=== PATIENT | female | born 1960 | race Caucasian/White ===

== ENCOUNTER 2017-06-10 10:48 | Day surgery (SDC) | payer OTHER, SELFPAY ==
[2017-06-10 11:11] VITALS: BP 160/95; PULSE 73; RESP 18; TEMP 36.6; O2SAT 96
[2017-06-10 11:34] VITALS: BP 154/89; PULSE 75; RESP 18; TEMP 36.6; O2SAT 99
[2017-06-10 11:51] VITALS: BP 163/83; PULSE 72; RESP 97
[2017-06-10 11:56] VITALS: BP 155/83; PULSE 74; RESP 20; O2SAT 97
--- NOTE | 2017-06-10 12:00 | HMH.PMPROC ---
- Procedure Date: 06/10/17 Time: 12:00 Anesthesiologist:: Alfredo Carlin CRNA Complications:: None Pre-procedure Diagnosis:: Disc disease lumbar spine Post-procedure Diagnosis:: Same Indications for Procedure:: A pleasant 57-year-old white female that we have been managing with an intrathecal pain pump for chronic low back pain secondary to degenerative disc disease lumbar spine multiple levels start procedure clinic today for intrathecal pain pump refill. She currently has morphine sulfate 15 mg/mL. Her current rate is 2.4 mg per day. Objective: Patient is awake alert oriented ?3. No acute distress. Flexion extension lumbar spine somewhat guarded secondary to pain. Deep tendon reflexes upper and lower extremities normal. Motor strength upper and lower extremities normal. There is no gross sensory deficit. Gait is normal. Procedure Details:: Details of the procedure were explained to the patient. The patient was taken to the procedure room placed in the supine position on the fluoroscopy table. The area over the pump was cleansed using chlorhexidine as a cleansing solution. Using 22-gauge needle on the refill kit the pump was accessed with ease. 5ml's of solution was withdrawn and discarded appropriately. The pump was then filled with 20 cc of morphine sulfate 15 mg/mL. The pump was interrogated. The rate was continued at 2.4 mg per day. Plan and Disposition:: Patient was reevaluated 10 minutes post procedure. She is doing very well.
== END 2017-06-10 12:11 | disposition home or self-care (01) ==
LOC: SC.PAINP 10:51
PROVIDERS: Visit Provider Nurse Anesthetist, Certified Registered
DX: M51.36 Other intervertebral disc degeneration, lumbar region (principal)
CPT/HCPCS: 95991

== ENCOUNTER → 2017-11-24 11:05 | Outpatient (POV) | payer OTHER, SELFPAY ==
[2017-11-24 11:24] VITALS: BP 148/79; PULSE 81; RESP 18; TEMP 36.3; O2SAT 96; BMI 25.8
--- NOTE | 2017-11-24 12:09 | HMH.PAINSOAP ---
[facility] Pain Management SOAP Note Subjective:: She is a pleasant 57-year-old white female who presents today for follow-up. Patient had her intrathecal pain pump generator changed last week. Since then she has had an open rash over her stomach and her legs. Patient is allergic to adhesive and does follow the pattern of iso-band. Patient has taken some Benadryl however not regularly. Patient is finishing up her bedroom. Patient's incision site looks clean and dry. There is no sign symptoms of infection and patient denies fever. Patient states her pain control with her new pump at [place]. She states that she is having full coverage of all of her pain including her shoulder pain. ROS General: no recent weight change, no fever, no sleep disturbances Respiratory: no cough, no shortness of air, no recurring pulmonary infections Cardiovascular/Peripheral Vascular: No chest pain, No palpitations, no edema, no shortness of breath. Gastrointestinal: no incontinence, normal bowel movements reported Genitourinary: no incontinence Musculoskeletal: Back pain Skin: Scattered rash Psychiatric: normal mood/ affect Neurological: [denies weakness in extremities], [denies balance issues] Objective:: Physical Exam General: Alert and oriented x3, no acute distress, pleasant and cooperative, [on room air] Lungs: Resps E/U, Symmetrical chest expansion, Eyes: PERRL Musculoskeletal: Flexion and extension of lumbar spine somewhat guarded secondary to pain, deep tendon reflexes normal, strength in upper and lower extremities [5/5], slightly antalgic gait noted Skin: Pump insertion site clean dry intact. Patient still has stitches. No redness noted around the site. No drainage noted. Patient does have scattered rash on her abdomen. 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 Patient has been instructed to call our office if she begins to have any fever or drainage from her site. Patient is to continue on Benadryl until resolution of rash. I also encouraged her to get some Benadryl cream and utilize that topically. Patient is to finish her antibiotic therapy. This note was dictated using voice recognition software and may contain errors or omissions
--- NOTE | 2017-11-24 12:12 | P.CONS_ITS ---
[facility] Pain Management SOAP Note Subjective:: She is a pleasant 57-year-old white female who presents today for follow-up. Patient had her intrathecal pain pump generator changed last week. Since then she has had an open rash over her stomach and her legs. Patient is allergic to adhesive and does follow the pattern of iso-band. Patient has taken some Benadryl however not regularly. Patient is finishing up her bedroom. Patient' s incision site looks clean and dry. There is no sign symptoms of infection and patient denies fever. Patient states her pain control with her new pump at [place]. She states that she is having full coverage of all of her pain including her shoulder pain. ROS General: no recent weight change, no fever, no sleep disturbances Respiratory: no cough, no shortness of air, no recurring pulmonary infections Cardiovascular/Peripheral Vascular: No chest pain, No palpitations, no edema, no shortness of breath. Gastrointestinal: no incontinence, normal bowel movements reported Genitourinary: no incontinence Musculoskeletal: Back pain Skin: Scattered rash Psychiatric: normal mood/ affect Neurological: [denies weakness in extremities], [denies balance issues] Objective:: Physical Exam General: Alert and oriented x3, no acute distress, pleasant and cooperative, [ on room air] Lungs: Resps E/U, Symmetrical chest expansion, Eyes: PERRL Musculoskeletal: Flexion and extension of lumbar spine somewhat guarded secondary to pain, deep tendon reflexes normal, strength in upper and lower extremities [5/5], slightly antalgic gait noted Skin: Pump insertion site clean dry intact. Patient still has stitches. No redness noted around the site. No drainage noted. Patient does have scattered rash on her abdomen. Neurological: speech clear, guest relation officer equal, no gross sensory deficits Assessment:: Degenerative disc disease of the lumbar spine with lumbar radiculopathy symptoms , lumbar postlaminectomy syndrome Plan:: We will follow-up with this patient in another week to remove her stitches. Patient has been instructed to call our office if she begins to have any fever or drainage from her site. Patient is to continue on Benadryl until resolution of rash. I also encouraged her to get some Benadryl cream and utilize that topically. Patient is to finish her antibiotic therapy. This note was dictated using voice recognition software and may contain errors or omissions
== END ==
PROVIDERS: Visit Provider Clinical Nurse Specialist Family Health
DX: M54.16 Radiculopathy, lumbar region (principal)
CPT/HCPCS: 99212

== ENCOUNTER → 2017-12-02 10:51 | Outpatient (POV) | payer OTHER, SELFPAY ==
--- NOTE | 2017-12-02 11:58 | P.CONS_ITS ---
[facility] Pain Management SOAP Note Subjective:: Patient is a pleasant 57-year-old white female who presents today for first follow-up visit after her intrathecal pain pump generator change. Patient was having a rash however she is doing much better. Patient was allergic to adhesive. Patient states the pump is doing extremely well for her pain and actually covering more pain areas than she did before. Patient rates her pain a 3 out of 10 today. Patient's stitches have been removed her incision is healing clean and dry with no sign symptoms of infection. ROS General: no recent weight change, no fever, no sleep disturbances Respiratory: no cough, no shortness of air, no recurring pulmonary infections Cardiovascular/Peripheral Vascular: No chest pain, No palpitations, no edema, no shortness of breath. Gastrointestinal: no incontinence, normal bowel movements reported Genitourinary: no incontinence Musculoskeletal: Back pain Psychiatric: normal mood/ affect Neurological: [denies weakness in extremities], [denies balance issues] Objective:: Physical Exam General: Alert and oriented x3, no acute distress, pleasant and cooperative, [ on room air] Lungs: Resps E/U, Symmetrical chest expansion, Eyes: PERRL Musculoskeletal: Flexion and extension of lumbar spine somewhat guarded secondary to pain, deep tendon reflexes normal, strength in upper and lower extremities [5/5], antalgic gait noted Neurological: speech clear, 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 Patient has been instructed to call the office if she has any issues prior to her next appointment. This note was dictated using voice recognition software and may contain errors or omissions
[2017-12-02 12:41] VITALS: BP 136/84; PULSE 82; RESP 18; O2SAT 98; BMI 25.8
== END ==
PROVIDERS: Visit Provider Clinical Nurse Specialist Family Health
DX: M54.16 Radiculopathy, lumbar region (principal)
CPT/HCPCS: 99212

== ENCOUNTER 2019-12-13 14:19 | Day surgery (SDC) | payer OTHER, SELFPAY ==
[2019-12-13 14:25] VITALS: BP 146/98; BP 165/103; PULSE 75; PULSE 77; RESP 18; TEMP 36.3; O2SAT 95; O2SAT 97; BMI 28.2
[2019-12-13 14:28] VITALS: BP 180/91; PULSE 69; RESP 18; O2SAT 98
[2019-12-13 14:35] VITALS: BP 180/85; PULSE 74; RESP 18; O2SAT 98
--- NOTE | 2019-12-13 14:41 | HMH.PMPROC ---
- Procedure Date: 12/13/19 Time: 14:41 Anesthesiologist:: Anila Musa APRN Complications:: None Pre-procedure Diagnosis:: Degenerative disc disease lumbar spine lumbar radiculopathy Post-procedure Diagnosis:: Same Indications for Procedure:: Patient is a pleasant 59-year-old white female who presents today for intrathecal pain pump refill and reprogram. She is on intrathecal morphine dose of 2.25 mg a day and denies side effects. Michael reviewed and appropriate. Patient's being sent for drug screen today. Patient denies any need for any adjustments today. She is under some additional stress due to her breaking his leg. Patient's blood pressure is slightly elevated today. Patient is going to continue to monitor this. Physical Exam General: Alert and oriented x3, no acute distress, pleasant and cooperative, [on room air] Lungs: Resps E/U, Symmetrical chest expansion, Eyes: PERRL Musculoskeletal: Flexion and extension of lumbar spine somewhat guarded secondary to pain, deep tendon reflexes normal, strength in upper and lower extremities [5/5], slightly antalgic gait noted Neurological: speech clear, professor of sport management equal, no gross sensory deficits Procedure Details:: Informed consent was obtained and the risk and benefits of the procedure were explained to the patient. The patient was taken to the procedure room where noninvasive monitoring was placed including noninvasive blood pressure cuff and pulse oximeter. Patient's pump was interrogated. The area over the pump was cleansed with chlorhexidine as a cleansing solution. In sterile fashion the pump was accessed with a 22-gauge needle. Approximately 5 mL's were removed of the pump solution and discarded appropriately. The pump was then refilled with 20 mL's of 20 mL's of morphine 20 mg/mL. The needle was withdrawn and a bandage was placed over the puncture site. The infusion rate was reprogrammed to continue 2.25 mg/day. The patient tolerated the procedure well. Plan and Disposition:: We will follow-up with the patient and her next intrathecal pain pump refill and reprogram she has been instructed to call the office if she has any issues prior to her next appointment. Dr. Fernandez has reviewed this note and agrees with this plan of care. This note was dictated using voice recognition software and may contain errors or omissions
--- NOTE | 2020-02-24 12:15 | PC.NURSE ---
3 REFILLS FOR Gabapentin 600mg qid and celebrex 200mg bid called into [facility] per provider order
== END 2019-12-13 14:51 | disposition home or self-care (01) ==
LOC: SC.PAINP 14:20
PROVIDERS: Visit Provider Clinical Nurse Specialist Family Health
DX: M51.16 Intervertebral disc disorders with radiculopathy, lumbar region (principal); M96.1 Postlaminectomy syndrome, not elsewhere classified; Z88.8 Allergy status to other drugs, medicaments and biological substances; Z91.048 Other nonmedicinal substance allergy status
CPT/HCPCS: 95991

== ENCOUNTER 2020-04-17 13:43 | Day surgery (SDC) | payer OTHER, SELFPAY ==
[2020-04-17 14:00] VITALS: BP 174/99; PULSE 87; RESP 18; TEMP 37.2; O2SAT 93; BMI 25.0
--- NOTE | 2020-04-17 14:14 | P.PCN_ITS ---
- Procedure Date: 04/17/20 Time: 14:24 Anesthesiologist:: Anila Musa APRN Complications:: None Pre-procedure Diagnosis:: Degenerative disc disease lumbar spine lumbar radiculopathy Post-procedure Diagnosis:: Same Indications for Procedure:: Patient is a pleasant 59-year-old white female presents today for intrathecal pain pump refill and reprogram. She is currently on intrathecal morphine dose of 2.25 mg/day she denies side effects. Her drug screens have been appropriate. Patient does not need any adjustments today. Physical Exam General: Alert and oriented x3, no acute distress, pleasant and cooperative, [on room air] Lungs: Resps E/U, Symmetrical chest expansion, Eyes: PERRL Musculoskeletal: Flexion and extension of lumbar spine somewhat guarded secondary to pain, deep tendon reflexes normal, strength in upper and lower extremities [5/5], slightly antalgic gait noted Neurological: speech clear, humanities and languages professor equal, no gross sensory deficits Procedure Details:: Informed consent was obtained and the risk and benefits of the procedure were explained to the patient. The patient was taken to the procedure room where noninvasive monitoring was placed including noninvasive blood pressure cuff and pulse oximeter. Patient's pump was interrogated. The area over the pump was cleansed with chlorhexidine as a cleansing solution. In sterile fashion the pump was accessed with a 22-gauge needle. Approximately 2 mL's were removed of the pump solution and discarded appropriately. The pump was then refilled with 20 mL's of morphine 20 mg/mL. The needle was withdrawn and a bandage was placed over the puncture site. The infusion rate was reprogrammed to continue at 2.25 mg/day. The patient tolerated the procedure well. Plan and Disposition:: We will see the patient back at her next intrathecal pain pump refill and reprogram she has been instructed to call the office if she has any issues prior to her next appointment. Dr. Fernandez has reviewed this note and agrees with this plan of care. This note was dictated using voice recognition software and may contain errors or omissions
[2020-04-17 14:16] VITALS: BP 160/92; PULSE 63; RESP 18
[2020-04-17 14:21] VITALS: BP 158/91; PULSE 81; RESP 18; O2SAT 97
[2020-04-17 14:35] VITALS: BP 132/74; PULSE 76; RESP 18; O2SAT 94
== END 2020-04-17 14:35 | disposition home or self-care (01) ==
LOC: SC.PAINP 13:44
PROVIDERS: Visit Provider Clinical Nurse Specialist Family Health
DX: M51.16 Intervertebral disc disorders with radiculopathy, lumbar region (principal); Z45.1 Encounter for adjustment and management of infusion pump
CPT/HCPCS: 95991

== ENCOUNTER 2020-08-14 13:52 | Day surgery (SDC) | payer OTHER, SELFPAY ==
[2020-08-14 13:57] VITALS: BP 178/87; PULSE 79; RESP 18; TEMP 36.8; O2SAT 98; BMI 27.4
[2020-08-14 14:16] VITALS: BP 150/78; PULSE 80; RESP 18
[2020-08-14 14:21] VITALS: BP 148/97; PULSE 77; RESP 18; O2SAT 97
--- NOTE | 2020-08-14 14:26 | HMH.PMPROC ---
- Procedure Date: 08/14/20 Time: 14:27 Anesthesiologist:: Anila Musa APRN Complications:: None Pre-procedure Diagnosis:: CRPS type I left upper extremity, degenerative disc disease lumbar spine lumbar radiculopathy Post-procedure Diagnosis:: Same Indications for Procedure:: Patient is a pleasant 60-year-old white female who presents today for intrathecal pain pump refill and reprogram she is currently on morphine dose of 2.25 mg/day. Its treating her CRPS type one of her left upper extremity and her lower back pain. Patient is currently on gabapentin 600 mg 1 p.o. 4 times daily [facility] #[id number] reviewed and appropriate. She does not need any changes today. Her pain is well controlled rating it a 4 out of 10 today. Procedure Details:: Refill informed consent was obtained and the risk and benefits of the procedure were explained to the patient. The patient was taken to the procedure room where noninvasive monitoring was placed including noninvasive blood pressure cuff and pulse oximeter. Patient's pump was interrogated. The area over the pump was cleansed with chlorhexidine as a cleansing solution. In sterile fashion the pump was accessed with a 22-gauge needle. Approximately 2.5 mL's were removed of the pump solution and discarded appropriately. The pump was then refilled with 20 mL's of morphine 20 mg/mL. The needle was withdrawn and a bandage was placed over the puncture site. The infusion rate was reprogrammed to continue at 2.25 mg/day. The patient tolerated the procedure well. Plan and Disposition:: I will see the patient back at her next intrathecal pain pump refill and reprogram she has been instructed to call the office if she has any issues prior to next appointment. Dr. Fernandez has reviewed this note and agrees with this plan of care. This note was dictated using voice recognition software and may contain errors or omissions
[2020-08-14 14:37] VITALS: BP 171/87; PULSE 81; RESP 18; O2SAT 98
== END 2020-08-14 14:38 | disposition home or self-care (01) ==
LOC: SC.PAINP 13:53
PROVIDERS: Visit Provider Clinical Nurse Specialist Family Health
DX: G90.522 Complex regional pain syndrome I of left lower limb (principal); M51.16 Intervertebral disc disorders with radiculopathy, lumbar region; Z88.8 Allergy status to other drugs, medicaments and biological substances; F41.9 Anxiety disorder, unspecified; F32.9 Major depressive disorder, single episode, unspecified; Z79.899 Other long term (current) drug therapy
CPT/HCPCS: 95991

== ENCOUNTER 2020-12-11 13:13 | Day surgery (SDC) | payer OTHER, SELFPAY ==
[2020-12-11 13:24] VITALS: BP 135/85; PULSE 76; RESP 18; TEMP 36.6; BMI 27.4
[2020-12-11 13:56] VITALS: BP 150/96; PULSE 69; RESP 18; O2SAT 97
[2020-12-11 14:00] VITALS: BP 150/96; PULSE 71; RESP 18; O2SAT 97
[2020-12-11 14:17] VITALS: BP 141/69; PULSE 70; RESP 18; O2SAT 98
--- NOTE | 2020-12-11 14:20 | HMH.PMPROC ---
- Procedure Date: 12/11/20 Time: 14:20 Anesthesiologist:: Juli Villar APRN Complications:: None Pre-procedure Diagnosis:: Degenerative disc disease lumbar spine with lumbar radiculopathy symptoms, CRPS type I left upper extremity Post-procedure Diagnosis:: Same Indications for Procedure:: Patient is a pleasant 60-year-old white female who presents today for intrathecal pain pump refill and reprogram. She is currently on morphine at 2.25 mg/day. She denies any side effects, however, she does rate her pain a 7 out of 10 today. She would like an increase in her medication with the pump. She says she is having some worsening low back pain. She is also managed with gabapentin 600 mg 1 tablet p.o. 4 times daily. She denies any side effects with that medication. She says she does not need refills on her gabapentin at this time. We will refill her intrathecal pump today and and give her an increase. 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 The patient was taken to the procedure room where noninvasive monitoring was placed including noninvasive blood pressure cuff and pulse oximeter. Patient's pump was interrogated. The area over the pump was cleansed with chlorhexidine as a cleansing solution. In sterile fashion the pump was accessed with a 22-gauge needle. Approximately 3 mls of the pump solution was removed and discarded appropriately. The pump was then refilled with 20 mL's of morphine 20 mg per male. The needle was withdrawn and a bandage was placed over the puncture site. The infusion rate was reprogrammed at increased to morphine at 2.7 mg/day. The patient tolerated well with no complication. Plan and Disposition:: We will see the patient back at her next intrathecal refill. She does not need refills on her gabapentin at this time. She has been instructed to contact clinic she has any concerns for next appointment. Patient has been instructed to contact the clinic with any concerns before the next appointment. Dr. Fernandez has reviewed this note and agrees with this plan of care. This note was dictated using voice recognition software and make contain errors or omissions.
== END 2020-12-11 14:18 | disposition home or self-care (01) ==
LOC: SC.PAINP 13:14
PROVIDERS: Visit Provider Clinical Nurse Specialist Family Health
DX: M51.16 Intervertebral disc disorders with radiculopathy, lumbar region (principal); G90.512 Complex regional pain syndrome I of left upper limb; Z45.1 Encounter for adjustment and management of infusion pump; M19.90 Unspecified osteoarthritis, unspecified site; M79.7 Fibromyalgia; F41.9 Anxiety disorder, unspecified; F32.9 Major depressive disorder, single episode, unspecified
CPT/HCPCS: 62370

== ENCOUNTER 2021-03-26 13:09 | Day surgery (SDC) | payer OTHER, SELFPAY ==
[2021-03-26 13:35] VITALS: BP 168/92; BP 173/76; PULSE 80; PULSE 94; RESP 18; RESP 20; TEMP 36.4; O2SAT 96; BMI 26.6
[2021-03-26 13:57] VITALS: BP 171/84; PULSE 78; RESP 18; O2SAT 95
--- NOTE | 2021-03-26 14:02 | P.PCN_ITS ---
- Procedure Date: 03/26/21 Time: 14:04 Anesthesiologist:: Juli Villar APRN Complications:: None Pre-procedure Diagnosis:: Degenerative disc disease lumbar spine with lumbar radiculopathy symptoms, CRPS left upper extremity Post-procedure Diagnosis:: Same Indications for Procedure:: Patient is a 60-year-old white female who presents today for intrathecal pain pump refill and reprogram. She is currently on intrathecal therapy of morphine at 2.7 mg/day and denies any side effects. She is doing well overall with her intrathecal therapy. She is complaining, however of right side neck pain. She would like a small increase to see if this helps with the pain in her neck area. She is also managed with gabapentin 600 mg 1 tablet p.o. 4 times daily and denies any side effects of that medication. Rates her pain a 6 out of 10. Michael and drug screen are appropriate. Physical exam General: Alert and oriented x3, no acute distress, pleasant and cooperative Lungs: Respirations even and unlabored, symmetrical chest expansion Eyes: PERRL Musculoskeletal: Flexion and extension of lumbar [spine] somewhat guarded secondary to pain, [antalgic gait noted] Neurological: Speech clear, no gross sensory deficit Procedure Details:: Informed consent was obtained and the risk and benefits of the procedure were explained to the patient. The patient was taken to the procedure room where noninvasive monitoring was placed including noninvasive blood pressure cuff and pulse oximeter. Patient's pump was interrogated. The area over the pump was cl eansed with chlorhexidine as a cleansing solution. In sterile fashion the pump was accessed with a 22-gauge needle. Approximately 3 mls of the pump solution was removed and discarded appropriately. The pump was then refilled with 20 mL's of morphine 20 mg/mL. The needle was withdrawn and a bandage was placed over the puncture site. The infusion rate was reprogrammed at morphine at 3 mg/day. The patient tolerated well with no complication. Plan and Disposition:: We will refill the patient's gabapentin 600 mg 1 tablet p.o. 4 times daily. Patient will get 3 months of medication. We will see the patient back in the clinic at the next intrathecal refill. Patient has been instructed to contact the clinic with any concerns before the next appointment. Dr. Fernandez has reviewed this note and agrees with this plan of care. This note was dictated using voice recognition software and make contain errors or omissions.
[2021-03-26 14:15] VITALS: BP 171/87; PULSE 82; RESP 20; O2SAT 100
== END 2021-03-26 14:16 | disposition home or self-care (01) ==
LOC: SC.PAINP 13:12
PROVIDERS: Visit Provider Clinical Nurse Specialist Family Health
DX: M51.16 Intervertebral disc disorders with radiculopathy, lumbar region (principal); Z45.1 Encounter for adjustment and management of infusion pump; M79.7 Fibromyalgia; M19.90 Unspecified osteoarthritis, unspecified site; Z88.8 Allergy status to other drugs, medicaments and biological substances
CPT/HCPCS: 62370

== ENCOUNTER → 2021-07-09 09:11 | Outpatient (POV) | payer OTHER, SELFPAY ==
[2021-07-09 09:20] VITALS: BP 170/97; PULSE 86; RESP 18; O2SAT 95; BMI 27.4
--- NOTE | 2021-07-09 10:45 | HMH.PAINSOAP ---
[facility] Pain Management SOAP Note Subjective:: Patient is a 61-year-old white female who presents today for withdrawal type symptoms. She does have an intrathecal pain pump that was last refilled on 03/26/2021. She did contact the clinic with complaints of vomiting and diarrhea. She says that she did have withdrawal symptoms in the past and felt exactly as she is feeling at this time. Patient is on morphine at 3 mg/day. She says that she does not feel she is getting the medication. Per the patient's telemetry rating, she should have 1.7 mL to the pump. Patient says any time that she goes below 3 mL in her pump she has withdrawal type symptoms. She says when she is refilled past 3 months she always has withdrawal symptoms. Today, she rates her pain a 10 out of 10 with nausea vomiting and diarrhea. She says her symptoms started yesterday around 2:30 in the morning. Review of Systems General: No recent weight changes, no fever, no sleep disturbances Respiratory: No cough, no shortness of air, no recurring pulmonary infections Cardiovascular/peripheral vascular: No chest pain, no palpitations, no edema, no shortness of breath Gastrointestinal: Nausea vomiting, diarrhea Genitourinary: No new onset incontinence Musculoskeletal: Chronic low back pain Psychiatric: [Normal mood/affect] Neurological: [Denies weakness in extremities], [denies balance issues] Objective:: Physical exam General: Alert and oriented x3, no acute distress, pleasant and cooperative Lungs: Respirations even and unlabored, symmetrical chest expansion Eyes: PERRL Musculoskeletal: Flexion and extension of lumbar [spine] somewhat guarded secondary to pain, [antalgic gait noted] Neurological: Speech clear, no gross sensory deficit Assessment:: Degenerative disc disease lumbar spine with lumbar radiculopathy symptoms, CRPS left upper extremity Plan:: We will start the patient on Vistaril 10 mg 1 tablet p.o. 3 times daily and Zofran 4 mg 1 tablet p.o. 3 times daily. We will order the patient's medication and refill her pump on of this week. She is been advised if Vistaril is not relieving any of her symptoms to contact the clinic. She is in agreement. We can increase the Vistaril to 25 mg 1 tablet p.o. 3 times daily as needed if Vistaril 10 mg is not adequate for her symptoms. Risks and benefits of the medication have been explained in detail to the patient. If side effects do present with the medication, patient has been advised to stop the medication immediately and call the clinic. The patient has been advised to consult with his/her primary care provider and pharmacist regarding drug-drug interaction of medications currently prescribed. Patient has been instructed to contact the clinic with any concerns before the next appointment. Dr. Fernandez has reviewed this note and agrees with this plan of care. This note was dictated using voice recognition software and make contain errors or omissions. [facility] History I have reviewed the patient's past medical history: Yes Medical History: Denies:: Cancer, Diabetes Mellitus Type 1, Diabetes Mellitus Type 2, Internal Pacemaker, MRSA, Seizures *Have you ever received a pneumonia vaccine?: Yes *Have you received a flu vaccine this season?: No Other Medical History: Reports: Arthritis, Fibromyalgia, Sinus Problems, Other (RA, CBP). Denies: Blood Transfusion Reaction Other Surgeries: Yes: Appendectomy, , Dilation and Curettage, Diagnostic Lap. No: Pacemaker Amputation: No Fractures: No - *Social History Smoking Status: Former smoker Tobacco Type: cigarettes # Packs/Day (cigarettes): 1 Alcohol Intake: never *Occupational Status:: unemployed Housing: house Household Members: other *Travel in the last 8 weeks: None Family Hx:: Unable to obtain
== END ==
PROVIDERS: Visit Provider Clinical Nurse Specialist Family Health
DX: M51.16 Intervertebral disc disorders with radiculopathy, lumbar region (principal)
CPT/HCPCS: 99212; G0463

== ENCOUNTER 2021-07-12 08:09 | Day surgery (SDC) | payer OTHER, SELFPAY ==
[2021-07-12 08:15] VITALS: BP 180/100; PULSE 91; RESP 20; TEMP 36.7; O2SAT 95; BMI 27.0
[2021-07-12 08:23] VITALS: BP 167/87; PULSE 89; RESP 20; O2SAT 93
[2021-07-12 08:28] VITALS: BP 192/100; PULSE 91; RESP 20; O2SAT 96
[2021-07-12 08:35] VITALS: BP 188/101; PULSE 89; RESP 20; O2SAT 96
--- NOTE | 2021-07-12 09:20 | HMH.PMPROC ---
- Procedure Date: 07/12/21 Time: 09:20 Anesthesiologist:: Juli Villar APRN Complications:: None Pre-procedure Diagnosis:: Degenerative disc disease lumbar spine with lumbar radiculopathy symptoms Post-procedure Diagnosis:: Same Indications for Procedure:: Patient is a 61-year-old white female who presents today for intrathecal pain pump refill and reprogram. She was seen in the clinic this previous Friday for complaints of withdrawal type symptoms. She was having nausea vomiting and GI upset. She says that she was having the symptoms in the past when withdrawing. Patient intrathecal pump was at a low level. As result medication was ordered this week and she is here today for refill. She is currently on morphine at 3 mg/day. We will decrease the patient's pump by 10% today. She may need to continue to decrease. She has been advised of the symptoms and is advised to return to the clinic if the medication seems to be too much for her. She is in agreement. She has been taking Vistaril and Zofran for her symptoms. Physical exam General: Alert and oriented x3, no acute distress, pleasant and cooperative Lungs: Respirations even and unlabored, symmetrical chest expansion Eyes: PERRL Musculoskeletal: Flexion and extension of lumbar [spine] somewhat guarded secondary to pain, [antalgic gait noted] Neurological: Speech clear, no gross sensory deficit Procedure Details:: Informed consent was obtained and the risk and benefits of the procedure were explained to the patient. The patient was taken to the procedure room where noninvasive monitoring was placed including noninvasive blood pressure cuff and pulse oximeter. Patient's pump was interrogated. The area over the pump was cleansed with chlorhexidine as a cleansing solution. In sterile fashion the pump was accessed with a 22-gauge needle. Approximately 0.5 mls of the pump solution was removed and discarded appropriately. The pump was then refilled with 20 mL's of morphine 20 mg/mL. The needle was withdrawn and a bandage was placed over the puncture site. The infusion rate was reprogrammed at 2.75 mg/day. She tolerated the procedure without complications Plan and Disposition:: Patient will contact the clinic if she does need to decrease or increase after today. If the patient is exhibiting withdrawal symptoms, we can increase her by 10%. If the patient is lethargic and feeling oversedated, we will decrease by 10%. She is in agreement. She will call the clinic if she has any concerns. Patient has been instructed to contact the clinic with any concerns before the next appointment. Dr. Fernandez has reviewed this note and agrees with this plan of care. This note was dictated using voice recognition software and make contain errors or omissions.
== END 2021-07-12 08:43 | disposition home or self-care (01) ==
LOC: SC.PAINP 08:11
PROVIDERS: PCP Dentist General Practice; Visit Provider Clinical Nurse Specialist Family Health
DX: M51.16 Intervertebral disc disorders with radiculopathy, lumbar region (principal); Z45.1 Encounter for adjustment and management of infusion pump
CPT/HCPCS: 62370

== ENCOUNTER 2021-10-01 13:11 | Day surgery (SDC) | payer OTHER, SELFPAY ==
[2021-10-01 13:19] VITALS: BP 181/80; PULSE 92; RESP 20; TEMP 36.9; O2SAT 90; BMI 25.8
[2021-10-01 13:20] VITALS: BP 175/79; PULSE 88; RESP 18; O2SAT 95
[2021-10-01 13:22] VITALS: BP 166/83; PULSE 80; RESP 18; O2SAT 95
--- NOTE | 2021-10-01 13:25 | HMH.PMPROC ---
- Procedure Date: 10/01/21 Time: 13:25 Anesthesiologist:: Alfredo Carlin CRNA Complications:: None Pre-procedure Diagnosis:: Disc disease lumbar spine multilevels. Lumbar radiculopathy symptoms. Post-procedure Diagnosis:: Same Indications for Procedure:: Patient is a very pleasant 61-year-old white female that returns to our clinic today for intrathecal pain pump interrogation and refill. Patient is currently being managed with morphine 0.7 mg/day. Doing quite well at this rate. No changes needed today. We will proceed with intrathecal pain pump refill. Procedure Details:: Details of the procedure were explained to the patient. The patient was taken the procedure room placed in the supine position. The area over the pump was cleaned using chlorhexidine as a cleansing solution. The pump was accessed with no difficulty using a 22-gauge needle. 6.2 mL of fluid was removed and discarded appropriately. The pump was then refilled with 20 cc of morphine milligrams per milliliter. Patient tolerated the procedure without difficulty. There were no complications. Plan and Disposition:: Patient was discharged without incident.
[2021-10-01 13:31] VITALS: BP 172/88; PULSE 89; RESP 20; TEMP 36.9; O2SAT 94
[2021-10-01 15:55] LABS: Amphetamine/Metha Screen,Urine Negative ng/ml (<1000)
[2021-10-01 15:56] LABS: Barbiturates Screen,Urine Negative ng/ml (<200)
[2021-10-01 15:58] LABS: Benzodiazepines Screen,Urine Negative ng/ml (<200); Cannabinoid Screen,Urine Negative ng/ml (<50)
[2021-10-01 15:59] LABS: Cocaine Screen,Urine Negative ng/ml (<300)
[2021-10-01 16:00] LABS: Methadone Screen,Urine Negative ng/ml (<300); Opiate Screen,Urine Positive ng/ml (<300)
[2021-10-01 16:01] LABS: Phencyclidine Screen,Urine Negative ng/ml (<25)
[2021-10-16 16:23] LABS: Codeine Negative (Cutoff=100); Hydrocodone Negative (Cutoff=100); Hydromorphone Negative (Cutoff=100); Morphine Positive (.); Opiates Positive (.)
== END 2021-10-01 13:32 | disposition home or self-care (01) ==
PROVIDERS: Visit Provider Nurse Anesthetist, Certified Registered
DX: M51.16 Intervertebral disc disorders with radiculopathy, lumbar region (principal); Z45.1 Encounter for adjustment and management of infusion pump; M79.7 Fibromyalgia; K21.9 Gastro-esophageal reflux disease without esophagitis; M19.90 Unspecified osteoarthritis, unspecified site; F41.9 Anxiety disorder, unspecified
CPT/HCPCS: 80305; 80361; 80365; 95991; G0480

== ENCOUNTER → 2021-12-13 08:10 | Outpatient (POV) | payer OTHER, SELFPAY ==
[2021-12-13 08:34] VITALS: BP 189/91; PULSE 81; RESP 20; TEMP 36.5; O2SAT 96; BMI 27.4
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
== END ==
PROVIDERS: Visit Provider Student in an Organized Health Care Education/Training Program
DX: M51.16 Intervertebral disc disorders with radiculopathy, lumbar region (principal); M25.512 Pain in left shoulder; M79.10 Myalgia, unspecified site; M06.9 Rheumatoid arthritis, unspecified
CPT/HCPCS: 99212; G0463

== ENCOUNTER 2021-12-25 08:32 | Day surgery (SDC) | payer OTHER, SELFPAY ==
[2021-12-25 08:56] VITALS: BP 177/94; PULSE 76; RESP 20; TEMP 36.4; O2SAT 96; BMI 28.2
[2021-12-25 09:15] VITALS: BP 176/90; PULSE 81; RESP 17; O2SAT 96
[2021-12-25 09:21] VITALS: BP 145/78; PULSE 86; RESP 20
--- NOTE | 2021-12-25 10:02 | HMH.PMPROC ---
- Procedure Date: 12/25/21 Time: 10:03 Anesthesiologist:: Alfredo Carlin CRNA Complications:: None Pre-procedure Diagnosis:: Cervical paraspinous muscle pain. Post-procedure Diagnosis:: Same Indications for Procedure:: Very pleasant 61-year-old female who is received cervical paraspinous muscle injections in the past. She presents today with a left-sided cervical paraspinous pain as well as left trapezius pain. Pain also extending down into the medial rhomboid. I will inject these areas today with a solution of 0.25% Marcaine +1% lidocaine and 40 mg of Depo-Medrol. Procedure Details:: Details of the procedure were explained to the patient. The patient was placed in the sitting position. The area over the left cervical paraspinous muscle as well as trapezius muscle and left rhomboid was cleaned using chlorhexidine as a cleansing solution. Markers were placed over the cervical paraspinous muscles in 2 locations. 2 locations over the left trapezius. As well as the left medial rhomboid using a 25-gauge inch and a half needle 3 cc was injected at each marker after negative aspiration. Patient tolerated procedure without difficulty. No complications. Plan and Disposition:: Patient was discharged with minimal pain.
== END 2021-12-25 09:16 | disposition home or self-care (01) ==
LOC: SC.PAINP 08:33
PROVIDERS: Visit Provider Nurse Anesthetist, Certified Registered
DX: M79.18 Myalgia, other site (principal); M51.16 Intervertebral disc disorders with radiculopathy, lumbar region; M25.512 Pain in left shoulder; M25.511 Pain in right shoulder
CPT/HCPCS: 20552; J1040

== ENCOUNTER 2022-01-04 14:29 | Day surgery (SDC) | payer OTHER, SELFPAY ==
[2022-01-04 14:38] VITALS: BP 163/92; PULSE 88; RESP 18; TEMP 36.9; O2SAT 95; BMI 26.6
[2022-01-04 14:43] VITALS: BP 169/92; PULSE 83; RESP 20
--- NOTE | 2022-01-04 14:59 | HMH.PMPROC ---
- Procedure Date: 01/04/22 Time: 14:59 Anesthesiologist:: Riccardo Fernandez MD Complications:: None Pre-procedure Diagnosis:: Degenerative disc disease of lumbar spine with lumbar radiculopathy symptoms Post-procedure Diagnosis:: Same Indications for Procedure:: Patient is a pleasant 61-year-old white female who we are treating for low back pain with lumbar radiculopathy symptoms. She has an intrathecal morphine pain pump in place. Currently she is going to 0.7 mg/day. She is doing very with her pump. Michael and drug screen are all appropriate. She does have an antalgic gait. Motor strength of the lower extremities is 5/5. There is no gross sensory deficit. We will refill her pump today and continue her at 2.7 mg/day. Procedure Details:: Informed consent was obtained and the risks and benefits of the procedure was explained to the patient. The patient was taken to the procedure room. The pump was interrogated. The area over the pump was prepped using ChloraPrep. The pump was accessed with a 22-gauge needle. Approximately 4 mL's of the intrathecal solution was withdrawn and discarded. The pump was then refilled with 20 mL's of intrathecal morphine 20 mg/mL. The pump was interrogated and the infusion was continued 2.7 mg/day. The patient tolerated the procedure well with no complication. Plan and Disposition:: We will follow-up with her in 2 weeks. Will reevaluate her symptoms at that time.
[2022-01-04 15:10] VITALS: BP 155/89; PULSE 87; RESP 20; O2SAT 97
== END 2022-01-04 15:10 | disposition home or self-care (01) ==
LOC: SC.PAINP 14:31
PROVIDERS: Visit Provider Anesthesiology
DX: M51.16 Intervertebral disc disorders with radiculopathy, lumbar region (principal)
CPT/HCPCS: 62370

== ENCOUNTER → 2022-04-22 09:57 | Outpatient (POV) | payer OTHER, SELFPAY ==
[2022-04-22 10:41] VITALS: BP 187/99; PULSE 78; RESP 18; O2SAT 96; BMI 27.1
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
== END | disposition home or self-care (01) ==
PROVIDERS: Visit Provider Nurse Practitioner Family
DX: M51.16 Intervertebral disc disorders with radiculopathy, lumbar region (principal); M79.602 Pain in left arm
CPT/HCPCS: 62368; 99212; 99213; G0463

== ENCOUNTER 2022-04-30 13:03 | Day surgery (SDC) | payer OTHER, SELFPAY ==
[2022-04-30 13:21] VITALS: BP 154/80; PULSE 91; RESP 18; TEMP 37.3; O2SAT 97; BMI 27.1
--- NOTE | 2022-04-30 13:31 | P.PCN_ITS ---
Procedure Date: 04/30/22 Time: 13:40 Anesthesiologist:: Alfredo Carlin CRNA Complications:: None Pre-procedure Diagnosis:: Degenerative disc disease of lumbar spine with lumbar radiculopathy symptoms Post-procedure Diagnosis:: Same Indications for Procedure:: Patient is a pleasant 61-year-old female who presents today for intrathecal pain pump refill. We are currently treating the patient for degenerative disc disease of lumbar spine with lumbar radiculopathy symptoms. Today she rates her pain a 10 out of 10. Patient denies any new trauma or injury. Patient denies any change of location or type of pain she experiences. Patient did come to clinic last week when she realized her pump was low. Patient has not been able to use her boluses during this time due to the small volume. Patient states that she has had some nausea over the last week due to the low volume however she did state the Zofran 4 mg as needed did help. Patient is currently managed with morphine 20 mg/mL with a daily dose of 2.7 mg/day. Patient denies any side effects from this medication. She states this medication does help her pain symptoms. She is also managed with gabapentin 600 mg 4 times a day. General: Alert and oriented x3, no acute distress, pleasant and cooperative Lungs: Respiration even unlabored, symmetrical chest expansion Eyes: PERRL Musculoskeletal: Flexion and extension of lumbar spine somewhat guarded secondary to pain, antalgic gait noted Neurological: Speech clear, no gross sensory deficit Procedure Details:: Informed consent was obtained and the risk and benefits of the procedure were explained to the patient. Patient was taken to the procedure room where noninvasive monitoring was placed on the patient including a noninvasive blood pressure cuff and pulse oximeter. The pump was interrogated with 0.7 mL expect ed. The area over the pump was cleansed with ChloraPrep as a cleansing solution. Using a 22-gauge sterile needle the pump was accessed with 1.6 mL of solution removed and discarded appropriately. The pump was then refilled with 20 mL of morphine 20 mg/mL. The needle was withdrawn and a sterile bandage applied. The pump was then reinterrogated and continued at morphine 2.7 mg/day. The patient tolerated the procedure well with no complications. Plan and Disposition:: Patient was monitored in clinic for short period of time following the procedure and discharged neurologically intact. We will see the patient back at her next intrathecal refill date. Patient has been instructed to contact the clinic with any questions or concerns before the next appointment date. Dr. Fernandez has read this note and agrees with this plan of care. This note was dictated using voice recognition software and may contain errors or omissions.
[2022-04-30 13:36] VITALS: BP 138/71; PULSE 83; RESP 18; O2SAT 97
[2022-04-30 13:39] VITALS: BP 138/71; PULSE 83; RESP 18; O2SAT 97
[2022-04-30 13:45] VITALS: BP 146/80; PULSE 77; RESP 18; O2SAT 96
== END 2022-04-30 13:45 | disposition home or self-care (01) ==
PROVIDERS: Visit Provider Nurse Anesthetist, Certified Registered
DX: M51.16 Intervertebral disc disorders with radiculopathy, lumbar region (principal)
CPT/HCPCS: 95991

== ENCOUNTER 2022-07-23 13:03 | Day surgery (SDC) | payer OTHER, SELFPAY ==
[2022-07-23 13:15] VITALS: BP 191/99; PULSE 93; RESP 18; TEMP 36.3; O2SAT 93; BMI 28.2
[2022-07-23 13:20] VITALS: BP 146/89; PULSE 88; RESP 18; O2SAT 97; O2SAT 98
--- NOTE | 2022-07-23 13:31 | EXP.PAIN.PRO ---
Procedure Date: 07/23/22 Time: 13:20 Anesthesiologist:: Alfredo Carlin CRNA Complications:: None Pre-procedure Diagnosis:: Degenerative disc lumbar spine multilevels. Lumbar radiculopathy Post-procedure Diagnosis:: Same. Indications for Procedure:: This patient is a pleasant 62-year-old female comes our clinic today for intrathecal pain pump interrogation and refill. She is currently being managed with morphine sulfate 20 mg/mL with a daily dose of 2.7 mg/day. Patient reports she is doing very well on her current settings. Procedure Details:: Details of the procedure were explained to the patient. The patient was taken to procedure room placed in the supine position. The pump was interrogated. The area over the pump was cleaned using chlorhexidine as a cleansing solution. Using fluoroscopy guidance the pump was accessed with ease using a 22-gauge inch and half needle. 5 mL of solution was withdrawn and discarded appropriately. The pump was then filled with 20 cc of morphine sulfate 20 mg/mL. The dose will remain at 2.7 mg/day. Patient tolerated procedure without difficulty. There are no complications. Plan and Disposition:: Patient was discharged without incident.
[2022-07-23 13:38] VITALS: BP 149/83; PULSE 84; RESP 18; O2SAT 93
== END 2022-07-23 13:38 | disposition home or self-care (01) ==
PROVIDERS: Visit Provider Nurse Anesthetist, Certified Registered
DX: Z45.1 Encounter for adjustment and management of infusion pump (principal); M51.16 Intervertebral disc disorders with radiculopathy, lumbar region
CPT/HCPCS: 95991

== ENCOUNTER 2022-10-08 11:43 | Day surgery (SDC) | payer OTHER, SELFPAY ==
[2022-10-08 11:44] VITALS: BP 117/91; PULSE 101; RESP 18; TEMP 36.6; O2SAT 93; BMI 28.2
[2022-10-08 11:58] VITALS: BP 174/96; PULSE 97; RESP 18; O2SAT 98
--- NOTE | 2022-10-08 12:04 | P.PCN_ITS ---
Procedure Date: 10/08/22 Time: 11:55 Anesthesiologist:: Alfredo Carlin CRNA Complications:: None Pre-procedure Diagnosis:: Degenerative disc disease lumbar spine multilevels. Lumbar radiculopathy. Post-procedure Diagnosis:: Same. Indications for Procedure:: Patient is a very pleasant 2-year-old female comes our clinic today for intrathecal pain pump refill and interrogation. She is currently being managed with morphine sulfate 20 mg/mL with a daily dose of 2.7 mg/day. She is doing very well on her current settings. She is not requesting any increase or decrease. Her insurance is requesting a change in her to oral medications she takes daily prescribed by us. She is currently taking Celebrex 200 mg 1 p.o. twice daily. Gabapentin 600 mg 1 p.o. 4 times daily. They are requesting naproxen 500 mg 1 p.o. twice daily with the addition of him on Omperazole 20 mg 1 p.o. daily. Al so changing gabapentin to 800 mg 1 p.o. 3 times daily. I discussed in detail with the patient regarding this request from her insurance. She agrees. She has refills due on 10/10/2022. We will make that change at that time. Procedure Details:: Details of the procedure explained to the patient. The patient taken the procedure room placed in the supine position. The area over the pump was cleansed using chlorhexidine as a cleansing solution. The pump was interrogated. The pump was accessed with ease using fluoroscopy guidance and a 22-gauge inch and a half needle. 7.1 mL of solution was withdrawn and discarded appropriately. The pump was then filled with morphine sulfate 20 mg/mL 20 cc. The rate will remain same 2.7 mg/day. Patient tolerated procedure without difficulty. There are no complications Plan and Disposition:: Patient was discharged without incident.
[2022-10-08 12:09] VITALS: BP 171/95; PULSE 90; RESP 18; O2SAT 93
== END 2022-10-08 12:09 | disposition home or self-care (01) ==
PROVIDERS: Visit Provider Nurse Anesthetist, Certified Registered
DX: Z45.1 Encounter for adjustment and management of infusion pump (principal); M51.16 Intervertebral disc disorders with radiculopathy, lumbar region
CPT/HCPCS: 95991

== ENCOUNTER 2022-12-31 11:37 | Day surgery (SDC) | payer OTHER, SELFPAY ==
[2022-12-31 11:49] VITALS: BP 172/84; BP 183/84; PULSE 87; PULSE 94; RESP 18; TEMP 36.6; O2SAT 97; O2SAT 99; BMI 27.4
[2022-12-31 12:05] VITALS: BP 180/71; PULSE 89; RESP 18; O2SAT 99
--- NOTE | 2022-12-31 12:08 | EXP.PAIN.PRO ---
Procedure Date: 12/31/22 Time: 12:00 Anesthesiologist:: Alfredo Carlin CRNA Complications:: None Pre-procedure Diagnosis:: Degenerative disc lumbar spine multilevels. Lumbar radiculopathy. Post-procedure Diagnosis:: Same. Indications for Procedure:: Patient is a very pleasant 62-year-old female that comes our clinic today for intrathecal pain pump refill and interrogation. She is currently being managed with morphine sulfate 20 mg/mL with a daily dose of 2.7 mg/day. She is doing very well with her current settings. She does not request any changes with her intrathecal pain pump management at this time. Procedure Details:: Details of the procedure explained to the patient. The patient taken to procedure room placed in the supine position. The area of the pumps cleansed using chlorhexidine as a cleansing solution. The pump was interrogated. Under fluoroscopy guidance the pump was accessed with ease using a 22-gauge inch and half needle. 5.2 mL of solution was withdrawn and discarded appropriately. The pump was then filled incrementally with morphine sulfate 20 mg/mL under fluoroscopy observation. The pump will continue at 2.7 mg/day. Patient tolerated procedure without difficulty. There are no complications. Plan and Disposition:: Patient was discharged without incident.
== END 2022-12-31 12:05 | disposition home or self-care (01) ==
PROVIDERS: Visit Provider Nurse Anesthetist, Certified Registered
DX: M51.16 Intervertebral disc disorders with radiculopathy, lumbar region (principal)
CPT/HCPCS: 95991

== ENCOUNTER 2023-03-18 11:40 | Day surgery (SDC) | payer OTHER, SELFPAY ==
[2023-03-18 11:54] VITALS: BP 132/76; BP 157/94; PULSE 71; PULSE 93; RESP 20; TEMP 36.4; O2SAT 92; BMI 27.4
[2023-03-18 12:33] VITALS: BP 122/75; PULSE 71; RESP 20; O2SAT 94
--- NOTE | 2023-03-18 12:36 | EXP.PAIN.PRO ---
Procedure Date: 03/18/23 Time: 12:30 Anesthesiologist:: Alfredo Carlin CRNA Complications:: None Pre-procedure Diagnosis:: Degenerative disc lumbar spine multilevels. Lumbar radiculopathy. Post-procedure Diagnosis:: Same. Indications for Procedure:: Patient is a very pleasant 62-year-old female comes our clinic today for intrathecal pain pump interrogation and refill. Patient doing well with her current settings. We currently manage her with morphine sulfate 20 mg/mL at a rate of 2.7 mg/day. Procedure Details:: Details of the procedure explained the patient. The patient taken the procedure room placed in the supine position. The area of the pump was cleaned using chlorhexidine as a cleansing solution. The pump was interrogated. The pump was accessed with ease using a 22-gauge inch and half needle. 6.4 mL of solution was withdrawn and discarded appropriate. Pump was then filled incrementally with 20 cc of solution containing morphine sulfate 20 mg/mL. The rate will continue at two-point send milligrams per day. Patient tolerated procedure without difficulty. There are no complications. Plan and Disposition:: Patient was discharged without incident.
== END 2023-03-18 12:38 | disposition home or self-care (01) ==
PROVIDERS: PCP Nurse Anesthetist, Certified Registered; Visit Provider Nurse Anesthetist, Certified Registered
DX: M51.16 Intervertebral disc disorders with radiculopathy, lumbar region (principal); Z97.8 Presence of other specified devices
CPT/HCPCS: 95991

== ENCOUNTER 2023-06-10 09:15 | Day surgery (SDC) | payer OTHER, SELFPAY ==
[2023-06-10 09:34] VITALS: BP 157/77; PULSE 109; RESP 18; O2SAT 93; BMI 27.1
[2023-06-10 09:57] VITALS: BP 139/81; PULSE 89; RESP 18; O2SAT 93
--- NOTE | 2023-06-10 10:09 | EXP.PAIN.PRO ---
Procedure Date: 06/10/23 Time: 09:50 Anesthesiologist:: Alfredo Carlin CRNA Complications:: None Pre-procedure Diagnosis:: Degenerative disc lumbar spine multilevels. Lumbar radiculopathy. Degenerative disc cervical spine multilevels. Cervical radiculopathy. Post-procedure Diagnosis:: Same. Indications for Procedure:: Patient is a pleasant 63-year-old female comes our clinic today for intrathecal pain pump interrogation refill. Currently patient is being managed with morphine sulfate 20 mg/mL at a rate of 2.7 mg today. She is doing very well with her current settings. She does not report any side effects or complications. Procedure Details:: Details of the procedure explained to the patient. The patient taken the procedure and placed in sitting position. The air over the pumps cleansed using chlorhexidine's cleansing solution. The pump was interrogated. The pump was accessed with ease using a 22-gauge inch and half needle with fluoroscopy guidance. 5 mL of solution was drawn and discarded appropriately. The pump was then filled using fluoroscopy guidance with 20 cc of solution containing morphine sulfate 20 mg/mL. Patient tolerated procedure without difficulty. There are no complications. Plan and Disposition:: Patient was discharged without incident.
[2023-06-10 10:43] VITALS: BP 148/76; PULSE 91; RESP 18; O2SAT 95
[2023-06-10 10:44] VITALS: BP 148/76; PULSE 91; RESP 18; O2SAT 95
[2023-06-10 11:19] LABS: Amphetamine/Metha Screen,Urine Negative ng/ml (<1000); Barbiturates Screen,Urine Negative ng/ml (<200); Benzodiazepines Screen,Urine Negative ng/ml (<200); Cannabinoid Screen,Urine Negative ng/ml (<50); Cocaine Screen,Urine Negative ng/ml (<300); Methadone Screen,Urine Negative ng/ml (<300); Opiate Screen,Urine Positive ng/ml (<300); Phencyclidine Screen,Urine Negative ng/ml (<25)
[2023-06-16 06:39] LABS: Codeine Negative (Cutoff=100); Hydrocodone Negative (Cutoff=100); Hydromorphone Negative (Cutoff=100); Morphine Positive (.); Opiates Positive (.)
== END 2023-06-10 09:57 | disposition home or self-care (01) ==
LOC: SC.PAINP 09:16
PROVIDERS: Anesthesiology; Visit Provider Nurse Anesthetist, Certified Registered
DX: M51.16 Intervertebral disc disorders with radiculopathy, lumbar region (principal); M50.10 Cervical disc disorder with radiculopathy, unspecified cervical region; Z97.8 Presence of other specified devices; Z45.1 Encounter for adjustment and management of infusion pump
CPT/HCPCS: 80307; 80361; 80365; 95991; G0480

== ENCOUNTER → 2023-06-16 15:33 | Outpatient (POV) | payer OTHER, SELFPAY ==
--- NOTE | 2023-06-16 15:48 | A.OFFVIS_ITS ---
[facility] Pain Management SOAP Note Subjective:: Patient is a pleasant 63-year-old female who presents today for follow-up. We are currently treating the patient for degenerative disc disease of cervical and lumbar spine with cervical and lumbar radiculopathy symptoms, chronic pain syndrome. Today patient rates her pain a 10 out of 10. Patient denies any new trauma or injury. She states that initially she had been on Celebrex for years however insurance required her to change to naproxen however she states she is never noticed significant relief or improvement with this. Patient states that she has been experiencing worsening pain that initially started in her foot with swelling, redness and pain however now it has been in her right wrist and forearm for the last several months. Patient states it is not getting any better and denies any specific trauma or injury that initially led to the symptoms. Patient states it is tender to touch and does interfere with her ability perform activities of daily living such as cooking and cleaning. Patient is managed with intrathecal morphine 20 mg/mL with a daily dose of 2.7 mg/day. Patient denies any side effects from this medication. Patient is also managed with gabapentin 800 mg 3 times a day. Patient does state that she had talked to her nephew months ago regarding her symptoms and that he had even mentioned possible gout however she did not follow-up with her primary care regarding this. Her Michael has been reviewed and appropriate. Review of Systems: General: No recent weight changes, no fever, no sleep disturbances Respiratory: No cough, no shortness of air, no recurring pulmonary infections Cardiovascular/peripheral vascular: No chest pain, no palpitations, no edema, no shortness of breath Gastrointestinal: No new onset incontinence, normal bowel movements reported Genitourinary: No new onset incontinence Musculoskeletal: Right wrist/forearm pain/swelling Psychiatric: [Normal mood/affect] Neurological: [Denies weakness in extremities], [denies balance issues] Objective:: Physical Exam: General: Alert and oriented x3, no acute distress, pleasant and cooperative Lungs: Respirations even and unlabored, symmetrical chest expansion Eyes: PERRL Musculoskeletal: Flexion and extension of right wrist somewhat guarded secondary to pain Neurological: Speech clear, no gross sensory deficit Assessment:: Degenerative disc disease of cervical and lumbar spine with cervical and lumbar radiculopathy symptoms, chronic pain syndrome, right wrist/forearm pain Plan:: Patient is experiencing significant pain in her right hand/wrist/forearm with significant swelling during today's visit. Patient had limited range of motion. I have discussed with the patient that I will order x-ray imaging as well as order uric acid levels to rule out possible gout. I will order the patient a compounded cream. I have discussed the risk and benefits of the Celebrex medication and will send in a 2-week supply of this medication. Patient will return to clinic in 2 weeks following lab and imaging for reevaluation of symptoms and plan of care. Patient has been instructed to contact the clinic with any concerns before the next appointment. Dr. Fernandez has reviewed this note and agrees with this plan of care. This note was dictated using voice recognition software and make contain errors or omissions. -- It Is medically necessary for this patient to continue to have their intrathecal pump refilled at regular intervals. This patient had an intrathecal pain pump implanted after meeting criteria of chronic intractable pain for greater than 3 months and failing conservative treatments. Patient has committed and been compliant to the treatment plan and all planned follow up care. Since implantation of the intrathecal pain pump, the patient has had decreased pain and been more functional. Oral medications have been reduced including intake of oral opioids. Patient continues to do well with intrathecal therapy with decrease in pain symptoms and increase in functional status. Stopping intrathecal medications can lead to life threatening withdrawal, seizures, cardiac arrest, severe pain, and possible . Pumps that are not refilled at regular intervals can be damages and cause and need for replacement. We continually titrate dose and concentration to optimize pain relief and function. We are limited in concentration for certain drugs to safely deliver medications through the pump and stay within the recommendations from the Polyanalgesic Consensus Committee Guidelines. Depending on dose and concentration these pumps may need to be refilled sooner than 3 months as we titrate. [facility] Disclaimer: The information contained in this section may have been updated after the patient was seen, as this information can be updated by other users. 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
[2023-06-16 15:57] VITALS: BP 171/93; PULSE 100; RESP 18; O2SAT 98; BMI 26.9
== END | disposition home or self-care (01) ==
PROVIDERS: Visit Provider Nurse Practitioner Family
DX: M50.10 Cervical disc disorder with radiculopathy, unspecified cervical region (principal); M51.16 Intervertebral disc disorders with radiculopathy, lumbar region; G89.4 Chronic pain syndrome; M25.531 Pain in right wrist; M79.631 Pain in right forearm; Z97.8 Presence of other specified devices
CPT/HCPCS: 99212; G0463

== ENCOUNTER 2023-06-16 16:05 | Outpatient (CLI) | payer OTHER, SELFPAY ==
--- NOTE | 2023-06-16 16:13 | XR_ITS ---
PROCEDURE INFORMATION: Exam: XR Right Wrist Exam date and time: 06/16/2023 4:18 PM Age: 63 years old Clinical indication: Pain; Wrist; Right; Additional info: Swelling/pain RT wrist TECHNIQUE: Imaging protocol: Radiologic exam of the right wrist. Views: 3 or more views. COMPARISON: No relevant prior studies available. FINDINGS: Bones/joints: Periarticular demineralization. No fracture. No definite erosions. Soft tissues: Normal. IMPRESSION: Demineralization.
[2023-06-16 18:35] LABS: Uric Acid 4.1 mg/dl (2.5-6.2)
== END 2023-06-16 23:59 ==
PROVIDERS: Visit Provider Nurse Practitioner Family
DX: M25.531 Pain in right wrist (principal); Y99.0 Civilian activity done for income or pay
CPT/HCPCS: 36415; 73110; 84550

== ENCOUNTER → 2023-06-30 08:45 | Outpatient (POV) | payer OTHER, SELFPAY ==
[2023-06-30 09:03] VITALS: BP 157/73; PULSE 85; RESP 18; O2SAT 97; BMI 26.9
--- NOTE | 2023-06-30 09:35 | EXP.PAIN.SOA ---
[facility] Pain Management SOAP Note Subjective:: Patient is a pleasant 63-year-old female who presents today for follow-up of right wrist x-ray and lab work. We are currently treating the patient for degenerative disc disease of cervical and lumbar spine with cervical and lumbar radiculopathy symptoms, chronic pain syndrome, right wrist/hand pain. Today the patient rates her pain a 5 out of 10. Patient denies any new trauma or injury. She states from our last visit her swelling in her right forearm and hand has improved some. Patient states she has been sleeping in a brace and feels like exercise she has been doing with her fingers have given her a little bit better range of motion. She states she does still have some soreness but it is better. Patient was also started back on Celebrex at our last visit and discontinued on the naproxen. Patient states that this has seemed to improve her overall symptoms as well. Patient did have uric acid levels drawn to rule out gout at her last visit. She is currently managed with intrathecal morphine 20 mg/mL with a daily dose of 2.7 mg/day. Patient denies any side effects from this medication. She is prescribed gabapentin 800 mg 3 times a day. Her Michael has been reviewed and is appropriate. Review of Systems: General: No recent weight changes, no fever, no sleep disturbances Respiratory: No cough, no shortness of air, no recurring pulmonary infections Cardiovascular/peripheral vascular: No chest pain, no palpitations, no edema, no shortness of breath Gastrointestinal: No new onset incontinence, normal bowel movements reported Genitourinary: No new onset incontinence Musculoskeletal: Right forearm/hand pain Psychiatric: [Normal mood/affect] Neurological: [Denies weakness in extremities], [denies balance issues] Objective:: Physical Exam: General: Alert and oriented x3, no acute distress, pleasant and cooperative Lungs: Respirations even and unlabored, symmetrical chest expansion Eyes: PERRL Musculoskeletal: Flexion and extension of right wrist somewhat guarded secondary to pain, [antalgic gait noted] Neurological: Speech clear, no gross sensory deficit Assessment:: Degenerative disc disease of cervical and lumbar spine with cervical and lumbar radiculopathy symptoms, chronic pain syndrome, right wrist/hand pain Plan:: Patient is doing better on the Celebrex 100 mg twice daily. I will send in a 1 month supply of this medication. I have counseled the patient that her uric acid levels were within normal range and x-ray had no acute findings. I have counseled the patient that I do recommend her to make a follow-up appointment with her primary care provider to possible do yearly lab work for additional findings. Patient does state that she has not had a primary care provider since Dr. Rivers . I have counseled the patient that we will follow-up at her next visit and see how she is doing and at that time if I need to order labs we will proceed forward with this. I have also counseled the patient in future it may be beneficial to order MRI imaging if she continues to have issues with this joint. Patient has been instructed to contact the clinic with any concerns before the next appointment. Dr. Fernandez has reviewed this note and agrees with this plan of care. This note was dictated using voice recognition software and make contain errors or omissions. -- It Is medically necessary for this patient to continue to have their intrathecal pump refilled at regular intervals. This patient had an intrathecal pain pump implanted after meeting criteria of chronic intractable pain for greater than 3 months and failing conservative treatments. Patient has committed and been compliant to the treatment plan and all planned follow up care. Since implantation of the intrathecal pain pump, the patient has had decreased pain and been more functional. Oral medications have been reduced including intake of oral opioids. Patient continues to do well with intrathecal therapy with decrease in pain symptoms and increase in functional status. Stopping intrathecal medications can lead to life threatening withdrawal, seizures, cardiac arrest, severe pain, and possible . Pumps that are not refilled at regular intervals can be damages and cause and need for replacement. We continually titrate dose and concentration to optimize pain relief and function. We are limited in concentration for certain drugs to safely deliver medications through the pump and stay within the recommendations from the Polyanalgesic Consensus Committee Guidelines. Depending on dose and concentration these pumps may need to be refilled sooner than 3 months as we titrate. [facility] Disclaimer: The information contained in this section may have been updated after the patient was seen, as this information can be updated by other users. 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
== END | disposition home or self-care (01) ==
PROVIDERS: Visit Provider Nurse Practitioner Family
DX: M50.10 Cervical disc disorder with radiculopathy, unspecified cervical region (principal); M51.16 Intervertebral disc disorders with radiculopathy, lumbar region; G89.4 Chronic pain syndrome; M25.531 Pain in right wrist; M79.641 Pain in right hand; Z97.8 Presence of other specified devices
CPT/HCPCS: 99212; G0463

== ENCOUNTER 2023-07-28 14:32 | Outpatient (POV) | payer OTHER, SELFPAY ==
--- NOTE | 2023-07-28 14:40 | EXP.PAIN.SOA ---
[facility] Pain Management SOAP Note Subjective:: Patient is a pleasant 63-year-old female who presents today for 1 month follow-up. We are currently treating the patient for degenerative disc disease of cervical and lumbar spine with cervical and lumbar radiculopathy symptoms, chronic pain syndrome, right wrist/hand pain. Today the patient rates her pain a 9 out of 10. Patient denies any new trauma or injury. She does state that she has had better improvement with going back on the Celebrex however she still continues to have right hand and left foot pain with some swelling. She states that it is no worse however continues to interfere with her activities of daily living. Patient does state that the hand is much better with decreased swelling however she still feels like her toes along the left foot are pushing out. Patient denies ever seen a occupational health technician in the past. Patient is very limited due to having no insurance. At our last visit we did discuss trying to establish a primary care provider and she states that she is in the process of trying to get in over at Ran [facility]lee's office in [place]. She states that she believes he does take no insurance. Patient does state that she does continue to do her nightly soaks as well as rolling on ice under the ball of her foot. Patient does also elevate that extremity as often as possible and does still use her IcyHot and Voltaren on both her wrist and foot. she is currently managed with intrathecal morphine 20 mg/mL with a daily dose of 2.7 mg/day. Patient denies any side effects from this medication. She is prescribed gabapentin 800 mg 3 times a day and Celebrex 100 mg twice daily. Her Michael has been reviewed and is appropriate. Review of Systems: General: No recent weight changes, no fever, no sleep disturbances Respiratory: No cough, no shortness of air, no recurring pulmonary infections Cardiovascular/peripheral vascular: No chest pain, no palpitations, no edema, no shortness of breath Gastrointestinal: No new onset incontinence, normal bowel movements reported Genitourinary: No new onset incontinence Musculoskeletal: Right forearm/hand pain Psychiatric: [Normal mood/affect] Neurological: [Denies weakness in extremities], [denies balance issues] Objective:: Physical Exam: General: Alert and oriented x3, no acute distress, pleasant and cooperative Lungs: Respirations even and unlabored, symmetrical chest expansion Eyes: PERRL Musculoskeletal: Flexion and extension of right wrist somewhat guarded secondary to pain, [antalgic gait noted] Neurological: Speech clear, no gross sensory deficit Assessment:: Degenerative disc disease of cervical and lumbar spine with cervical and lumbar radiculopathy symptoms, chronic pain syndrome, right wrist/hand pain Plan:: Patient is doing better with her current medication regimen. I have counseled the patient that I we will send in a 3-month supply of her Celebrex 100 mg 3 times a day and gabapentin 800 mg 3 times a day. I have reviewed over with the patient that in future I do think that she would also benefit from a occupational health technician referral. We will continue to follow-up with her regarding current insurance situation. Patient will return to clinic in 3 months for reevaluation of symptoms and plan of care. Patient has been instructed to contact the clinic with any concerns before the next appointment. Dr. Fernandez has reviewed this note and agrees with this plan of care. This note was dictated using voice recognition software and make contain errors or omissions. [facility] Disclaimer: The information contained in this section may have been updated after the patient was seen, as this information can be updated by other users. 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
[2023-07-28 15:39] VITALS: BP 183/88; PULSE 107; RESP 18; O2SAT 97; BMI 26.9
== END 2023-07-28 23:59 | disposition home or self-care (01) ==
PROVIDERS: Visit Provider Nurse Practitioner Family
DX: M50.10 Cervical disc disorder with radiculopathy, unspecified cervical region (principal); M51.16 Intervertebral disc disorders with radiculopathy, lumbar region; G89.4 Chronic pain syndrome; M25.531 Pain in right wrist; M79.641 Pain in right hand
CPT/HCPCS: 99212; G0463

== ENCOUNTER 2023-08-26 08:47 | Day surgery (SDC) | payer OTHER, SELFPAY ==
[2023-08-26 09:06] VITALS: BP 144/81; PULSE 91; RESP 18; TEMP 36.6; O2SAT 94; BMI 27.4
[2023-08-26 09:12] VITALS: BP 139/82; PULSE 85; RESP 18; O2SAT 97
[2023-08-26 09:13] VITALS: BP 139/82; PULSE 85; RESP 18; O2SAT 97
--- NOTE | 2023-08-26 09:21 | EXP.PAIN.PRO ---
Procedure Date: 08/26/23 Time: 09:10 Anesthesiologist:: Alfredo Carlin CRNA Complications:: None Pre-procedure Diagnosis:: Degenerative disc lumbar spine multilevels. Lumbar radiculopathy. Lumbar postlaminectomy syndrome. Lumbar spondylosis. Post-procedure Diagnosis:: Same. Indications for Procedure:: Patient is a very pleasant 63-year-old female comes to clinic today for intrathecal pain pump interrogation refill. She is currently being managed morphine sulfate 20 mg/mL at a rate of 2.7 mg/day. Patient doing very well with her current settings. She does not report any side effects or complications. She is not requesting any changes. Procedure Details:: Details of the procedure explained to the patient. The patient taken the procedure room placed in supine position. They over the pump was cleansed using chlorhexidine's cleansing solution. The pump was interrogated. Using fluoroscopy guidance the pump was accessed with ease using 22-gauge inch and half needle. 7 mL of solution was withdrawn discarded appropriately. The pump was then filled with 20 cc of solution containing morphine sulfate 20 mg/mL. Pump rate will continue at 2.7 mg/day. Patient tolerated procedure without difficulty. No complications. Plan and Disposition:: Patient voicing concern to me today regarding her pump being near end-of-life. We will schedule her a follow-up appointment in the office to discuss this and make a plan for reimplantation.
[2023-08-26 09:25] VITALS: BP 129/80; PULSE 88; RESP 16; O2SAT 94
== END 2023-08-26 09:25 | disposition home or self-care (01) ==
PROVIDERS: Visit Provider Nurse Anesthetist, Certified Registered
DX: M51.16 Intervertebral disc disorders with radiculopathy, lumbar region (principal); M47.26 Other spondylosis with radiculopathy, lumbar region; M96.1 Postlaminectomy syndrome, not elsewhere classified; Z97.8 Presence of other specified devices; Z45.1 Encounter for adjustment and management of infusion pump
CPT/HCPCS: 95991

== ENCOUNTER 2023-09-01 13:11 | Outpatient (POV) | payer OTHER, SELFPAY ==
[2023-09-01 13:20] VITALS: BP 159/75; PULSE 92; RESP 18; O2SAT 95; BMI 26.6
--- NOTE | 2023-09-01 13:35 | EXP.PAIN.SOA ---
[facility] Pain Management SOAP Note Subjective:: Patient is a pleasant 63-year-old female who presents today for follow-up. Today she rates her pain a 10 out of 10. Patient denies any new trauma or injury. She states she continues to have pain in her right wrist and hand area as well as her left foot and ankle. Patient states that the swelling has been going on for about a year unrelated to any specific injury. Patient denies any prior imaging of her foot and ankle. Patient does state that she is still trying to get and to establish primary care with a provider who will accept that she does not have any active insurance. Patient is currently managed with gabapentin 800 mg 3 times a day and Celebrex 100 mg twice a day. She denies any side effects from these medications. She is also managed with intrathecal morphine 20 mg/mL with a daily dose of 2.7 mg/day. She denies any side effects from the pump medication. Patient does state that at her last intrathecal refill she was told that we need to see about getting her scheduled for replacement of her intrathecal pump as hers is nearing the end of life. Patient states that she would like to get this taken care of. Patient states she has had the pump in place for 5 years and it is worked well for her. Patient states that she does feel like she has had overall improved function since having the pump. Her Mihcael has been reviewed and is appropriate. Review of Systems: General: No recent weight changes, no fever, no sleep disturbances Respiratory: No cough, no shortness of air, no recurring pulmonary infections Cardiovascular/peripheral vascular: No chest pain, no palpitations, no edema, no shortness of breath Gastrointestinal: No new onset incontinence, normal bowel movements reported Genitourinary: No new onset incontinence Musculoskeletal: Left foot/ankle pain, right wrist pain Psychiatric: [Normal mood/affect] Neurological: [Denies weakness in extremities], [denies balance issues] Objective:: Physical Exam: General: Alert and oriented x3, no acute distress, pleasant and cooperative Lungs: Respirations even and unlabored, symmetrical chest expansion Eyes: PERRL Musculoskeletal: Flexion and extension of lumbar [spine] somewhat guarded secondary to pain, [antalgic gait noted] Neurological: Speech clear, no gross sensory deficit Assessment:: Degenerative disc disease of lumbar spine with lumbar radiculopathy symptoms, lumbar postlaminectomy syndrome, degenerative disc disease of cervical spine with cervical radiculopathy symptoms, chronic pain syndrome, left ankle/foot pain, right wrist/hand pain Plan:: Patient does have a flowonix intrathecal pump and that has been in place for 5 years. This device is coming to its end-of-life date and I have reviewed over the risk and benefits of the intrathecal replacement. Patient would like to proceed forward with this plan of care. Patient is not on any blood thinners. I have also discussed with the patient that she may benefit from imaging to her left ankle and foot as well as possible EMG or circulation testing of that extremity. We will continue to monitor this and follow-up at future visits. Patient is agreeable to this plan of care. We will submit to insurance for the intrathecal pain pump replacement at end-of-life. Patient has tried and failed conservative therapies prior to this. Patient did have improved function and better quality of life the last 5 years that it has been in place. I have counseled the patient that when we do change out her pump medication we will plan on decreasing the overall daily dose as a precaution to prevent overmedication with the new device. Patient has been instructed to contact the clinic with any concerns before the next appointment. Dr. Fernandez has reviewed this note and agrees with this plan of care. This note was dictated using voice recognition software and make contain errors or omissions. -- It Is medically necessary for this patient to continue to have their intrathecal pump refilled at regular intervals. This patient had an intrathecal pain pump implanted after meeting criteria of chronic intractable pain for greater than 3 months and failing conservative treatments. Patient has committed and been compliant to the treatment plan and all planned follow up care. Since implantation of the intrathecal pain pump, the patient has had decreased pain and been more functional. Oral medications have been reduced including intake of oral opioids. Patient continues to do well with intrathecal therapy with decrease in pain symptoms and increase in functional status. Stopping intrathecal medications can lead to life threatening withdrawal, seizures, cardiac arrest, severe pain, and possible . Pumps that are not refilled at regular intervals can be damages and cause and need for replacement. We continually titrate dose and concentration to optimize pain relief and function. We are limited in concentration for certain drugs to safely deliver medications through the pump and stay within the recommendations from the Polyanalgesic Consensus Committee Guidelines. Depending on dose and concentration these pumps may need to be refilled sooner than 3 months as we titrate. [facility] Disclaimer: The information contained in this section may have been updated after the patient was seen, as this information can be updated by other users. 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
== END 2023-09-01 23:59 ==
PROVIDERS: Visit Provider Nurse Practitioner Family
DX: M51.16 Intervertebral disc disorders with radiculopathy, lumbar region (principal); M96.1 Postlaminectomy syndrome, not elsewhere classified; M50.10 Cervical disc disorder with radiculopathy, unspecified cervical region; G89.4 Chronic pain syndrome; M25.572 Pain in left ankle and joints of left foot; M25.531 Pain in right wrist
CPT/HCPCS: 99212; G0463

== ENCOUNTER 2023-10-23 10:53 | Outpatient (POV) | payer OTHER, SELFPAY ==
[2023-10-23 11:09] VITALS: BP 184/83; PULSE 96; RESP 16; O2SAT 95; BMI 27.1
--- NOTE | 2023-10-23 11:18 | A.OFFVIS_ITS ---
[facility] Pain Management SOAP Note Subjective:: Patient is a pleasant 63-year-old female who presents [facility] for follow-up. Today she rates her pain a 9 out of 10. Patient does have chronic pain throughout her body however most of her pain is related to a injury she sustained in 1999 at her work. Patient states that she has chronic pain throughout her left wrist and extremity. Patient did end up having interventions from that time on that required her to end up getting the pain pump placed. Patient has had a pain pump in place for over the last 20+ years and it does help manage her day-to-day pains. Patient does currently have a flowonix pump in place however it is at its end-of-life day and does need to be replaced. Patient does state that she would like to proceed forward with this option. She does state that her Worker's Comp. provider has just recently changed and that she has had some difficulty getting visits and/or pump refills covered. Patient states that with the pump she has much better improved function with overall decreased pain. Patient is currently managed with morphine 20 mg/mL with a daily dose of 2.7 mg/day and oral gabapentin 800 mg 3 times a day and Celebrex 100 mg twice a day. She denies any side effects from these medications. Her Michael has been reviewed and is appropriate. Review of Systems: General: No recent weight changes, no fever, no sleep disturbances Respiratory: No cough, no shortness of air, no recurring pulmonary infections Cardiovascular/peripheral vascular: No chest pain, no palpitations, no edema, no shortness of breath Gastrointestinal: No new onset incontinence, normal bowel movements reported Genitourinary: No new onset incontinence Musculoskeletal: Left wrist/left arm pain, chronic pain Psychiatric: [Normal mood/affect] Neurological: [Denies weakness in extremities], [denies balance issues] Objective:: Physical Exam: General: Alert and oriented x3, no acute distress, pleasant and cooperative Lungs: Respirations even and unlabored, symmetrical chest expansion Eyes: PERRL Musculoskeletal: Flexion and extension of cervical [spine] somewhat guarded secondary to pain, [antalgic gait noted] Neurological: Speech clear, no gross sensory deficit Assessment:: Chronic pain syndrome, left wrist last left arm pain Plan:: Patient does have a pump in place that is at its end-of-life date and needs replacement. The current device is no longer a company that is in production. Patient is unable to be exchanged for a new pump that would have a compatible catheter and does have to be switched over to a completely different system with new catheter that is compatible. Patient has tried and failed conservative therapies including continued at home exercising and stretching. We will submit to insurance for the intrathecal pain pump and catheter replacement due to end-of-life of her current pump. We will give her a tentative date and contact her if we have any problems with insurance approval. I will send in a 90-day supply of gabapentin and Celebrex with 1 refill. Patient will return to clinic 1 week postop of her intrathecal pain pump replacement and catheter replacement. Patient has been instructed to contact the clinic with any concerns before the next appointment. Dr. Fernandez has reviewed this note and agrees with this plan of care. This note was dictated using voice recognition software and make contain errors or omissions. -- It Is medically necessary for this patient to continue to have their intrathecal pump refilled at regular intervals. This patient had an intrathecal pain pump i mplanted after meeting criteria of chronic intractable pain for greater than 3 months and failing conservative treatments. Patient has committed and been compliant to the treatment plan and all planned follow up care. Since implantation of the intrathecal pain pump, the patient has had decreased pain and been more functional. Oral medications have been reduced including intake of oral opioids. Patient continues to do well with intrathecal therapy with decrease in pain symptoms and increase in functional status. Stopping intrathecal medications can lead to life threatening withdrawal, seizures, cardiac arrest, severe pain, and possible . Pumps that are not refilled at regular intervals can be damages and cause and need for replacement. We continually titrate dose and concentration to optimize pain relief and function. We are limited in concentration for certain drugs to safely deliver medications through the pump and stay within the recommendations from the Polyanalgesic Consensus Committee Guidelines. Depending on dose and concentration these pumps may need to be refilled sooner than 3 months as we titrate. [facility] Disclaimer: The information contained in this section may have been updated after the patient was seen, as this information can be updated by other users. 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
== END 2023-10-23 23:59 | disposition home or self-care (01) ==
PROVIDERS: Visit Provider Nurse Practitioner Family
DX: G89.4 Chronic pain syndrome (principal); M25.532 Pain in left wrist; M79.602 Pain in left arm; Z97.8 Presence of other specified devices
CPT/HCPCS: 99212; G0463

== ENCOUNTER 2023-11-11 09:40 | Day surgery (SDC) | payer OTHER, SELFPAY ==
[2023-11-11 09:53] VITALS: BP 147/77; PULSE 93; RESP 18; TEMP 36.6; O2SAT 95; BMI 26.1
[2023-11-11 10:03] VITALS: BP 147/77; PULSE 88; RESP 18; O2SAT 98
[2023-11-11 10:05] VITALS: BP 147/77; PULSE 88; RESP 18; O2SAT 98
[2023-11-11 10:20] VITALS: BP 124/79; PULSE 83; RESP 18; O2SAT 95
--- NOTE | 2023-11-11 10:20 | EXP.PAIN.PRO ---
Procedure Date: 11/11/23 Time: 10:00 Anesthesiologist:: Alfredo Carlin CRNA Complications:: None Pre-procedure Diagnosis:: Degenerative disc lumbar spine multilevel. Lumbar radiculopathy. Lumbar postlaminectomy syndrome. Lumbar spondylosis. Multilevel lumbar facet arthropathy. Post-procedure Diagnosis:: Same. Indications for Procedure:: Patient is a very pleasant 63-year-old female comes our clinic today for intrathecal pain pump interrogation refill. She is currently being managed with morphine sulfate 20 mg/mL rate of 2.7 mg/day. She is not reporting any side effects or complications regarding the intrathecal pain pump management. She is not requesting any changes today. Procedure Details:: Details of the procedure explained to the patient. The patient taken procedure and placed in sitting position. The area of the pump is cleansed using chlorhexidine as a cleansing solution. The pump was interrogated. The pump was accessed using fluoroscopy guidance with ease using a 22-gauge inch and half needle. 7 mL of solution was withdrawn discarded appropriate. The pump was then filled with 20 cc of solution containing morphine sulfate 20 mg/mL. Pump rate will remain the same 2.7 mg/day. Patient tolerated procedure without difficulty. There were no complications. Plan and Disposition:: Patient was discharged on incident.
== END 2023-11-11 10:22 | disposition home or self-care (01) ==
LOC: SC.PAINP 09:40
PROVIDERS: Visit Provider Nurse Anesthetist, Certified Registered
DX: M51.16 Intervertebral disc disorders with radiculopathy, lumbar region (principal); M96.1 Postlaminectomy syndrome, not elsewhere classified; M47.26 Other spondylosis with radiculopathy, lumbar region; Z97.8 Presence of other specified devices; Z45.1 Encounter for adjustment and management of infusion pump
CPT/HCPCS: 95991

== ENCOUNTER 2024-02-03 09:47 | Day surgery (SDC) | payer OTHER, SELFPAY ==
[2024-02-03 10:08] VITALS: BP 175/87; PULSE 86; RESP 16; TEMP 36.7; O2SAT 93; BMI 25.4
[2024-02-03 10:36] VITALS: BP 159/62; PULSE 74; RESP 18; O2SAT 98
[2024-02-03 10:38] VITALS: BP 159/62; PULSE 74; RESP 18; O2SAT 98
[2024-02-03 10:47] VITALS: BP 158/86; PULSE 78; RESP 16; O2SAT 95
--- NOTE | 2024-02-03 11:11 | P.PCN_ITS ---
Procedure Date: 02/03/24 Time: 10:10 Anesthesiologist:: Alfredo Carlin CRNA Complications:: None Pre-procedure Diagnosis:: Degenerative disc lumbar spine multilevels. Lumbar radiculopathy. Lumbar postlaminectomy syndrome. Lumbar spondylosis. Multilevel lumbar facet arthropathy. Post-procedure Diagnosis:: Same. Indications for Procedure:: Patient is a very pleasant 63-year-old female comes our clinic today for intrathecal pain pump interrogation and refill. Patient currently being managed with morphine sulfate 20 mg/mL at a rate of 2.7 mg/day. Patient doing very well with her current settings. She is not requesting any changes. She does not reporting side effects or complications. Patient is awake alert [place] x 3. No acute distress. Flexion-extension lumbar spine somewhat guarded secondary to pain. Deep tendon reflexes upper and lower extremities normal. Motor strength upper and lower extremities normal. There is no gross sensory deficit. Gait is normal. Procedure Details:: Details of the procedure explained to the patient. The patient taken procedure room placed in supine position on the fluoroscopy table. The air over the pump was cleansed using chlorhexidine as a cleansing solution. Using fluoroscopy g uidance the pump was accessed with ease using a 22-gauge inch and half needle. 5 mL of solution was withdrawn discarded appropriate. The pump was then filled with 20 cc of solution containing morphine sulfate 20 mg/mL. Pump rate will continue at 2.7 mg/day. Patient tolerated procedure without difficulty. There are no complications. Plan and Disposition:: Patient was discharged without incident.
== END 2024-02-03 10:47 | disposition home or self-care (01) ==
PROVIDERS: Visit Provider Nurse Anesthetist, Certified Registered
DX: M51.36 Other intervertebral disc degeneration, lumbar region (principal); M96.1 Postlaminectomy syndrome, not elsewhere classified; M47.816 Spondylosis without myelopathy or radiculopathy, lumbar region; Z79.891 Long term (current) use of opiate analgesic
CPT/HCPCS: 95991

== ENCOUNTER 2024-04-20 10:29 | Day surgery (SDC) | payer OTHER, SELFPAY ==
[2024-04-20 10:42] VITALS: BP 173/64; PULSE 91; RESP 16; TEMP 36.2; O2SAT 95; BMI 28.7
[2024-04-20 10:53] VITALS: BP 153/72; PULSE 80; RESP 18; O2SAT 97
[2024-04-20 10:56] VITALS: BP 153/72; PULSE 80; RESP 18; O2SAT 97
--- NOTE | 2024-04-20 11:03 | EXP.PAIN.PRO ---
Procedure Date: 04/20/24 Time: 10:50 Anesthesiologist:: Alfredo Carlin CRNA Complications:: None Pre-procedure Diagnosis:: Degenerative disc lumbar spine multilevels. Lumbar radiculopathy. Lumbar postlaminectomy syndrome. Lumbar spondylosis. Multilevel lumbar facet arthropathy. Post-procedure Diagnosis:: Same. Indications for Procedure:: Patient is a very pleasant 63-year-old female who comes our clinic today for intrathecal pain pump interrogation refill. She is currently being managed with morphine sulfate 20 mg/mL at 2.7 mg/day. She is doing very well with her current settings. She not reporting any complications or side effects. She is not requesting any changes. Patient is awake alert [place] x 3. In no acute distress. Flexion-extension lumbar spine somewhat guarded secondary to pain. Deep tendon reflexes upper and lower extremities normal. Motor strength upper lower extremities normal. There is no gross sensory deficit. Gait is normal. Procedure Details:: Details of the procedure explained to the patient. The patient taken procedure and placed in the supine position on the fluoroscopy table. The area over the pumps cleaned using chlorhexidine as a cleansing solution. The pump was interrogated. Pump was accessed with ease using a 22-gauge inch and half needle using fluoroscopy. 6 mL of solution was withdrawn discarded appropriately. The pump was then filled under fluoroscopy observance with 20 cc of solution containing morphine sulfate 20 mg/mL. Pump rate will continue at 2.7 mg/day. Patient tolerated procedure without difficulty. No complications. Plan and Disposition:: Patient was discharged without incident.
[2024-04-20 11:09] VITALS: BP 163/73; PULSE 88; RESP 16; O2SAT 95
== END 2024-04-20 11:09 | disposition home or self-care (01) ==
PROVIDERS: Visit Provider Nurse Anesthetist, Certified Registered
DX: M51.16 Intervertebral disc disorders with radiculopathy, lumbar region (principal); M96.1 Postlaminectomy syndrome, not elsewhere classified; M47.26 Other spondylosis with radiculopathy, lumbar region
CPT/HCPCS: 95991

== ENCOUNTER 2024-07-09 09:46 | Day surgery (SDC) | payer OTHER, SELFPAY ==
[2024-07-09 09:51] VITALS: BP 148/70; PULSE 92; RESP 16; O2SAT 95; BMI 27.4
--- NOTE | 2024-07-09 09:58 | EXP.PAIN.PRO ---
Procedure Date: 07/09/24 Time: 10:14 Anesthesiologist:: Julieth Ryan APRN Complications:: None Pre-procedure Diagnosis:: Degenerative disc disease of lumbar spine with lumbar radiculopathy symptoms Post-procedure Diagnosis:: Same Indications for Procedure:: Patient is a pleasant 64-year-old female who presents today for intrathecal refill and reprogram. Today she rates her pain a 7 out of 10. She denies any new trauma or injury. She does state that from her last appointment she has had much better improvements in her generalized swelling that she had been experiencing. Patient states she ended up trying pineapple juice and that seems to have helped. Patient does state that she is getting her Celebrex now.Patient is prescribed gabapentin 800 mg 3 times a day from our office and was just given a 3-month supply and does not need refills at this time. Patient is prescribed with intrathecal morphine 20 mg/mL with a daily dose of 2.7 mg/day. She denies any problems with this. She does also make mention that she is on another Worker's Comp. agent. She states that she still had significant issues with getting her medications. Her Michael has been reviewed and is appropriate. Physical Exam: General: Alert and oriented x3, no acute distress, pleasant and cooperative Lungs: Respirations even and unlabored, symmetrical chest expansion Eyes: PERRL Musculoskeletal: Flexion and extension of lumbar [spine] somewhat guarded secondary to pain, [antalgic gait noted] Neurological: Speech clear, no gross sensory deficit Procedure Details:: Informed consent was obtained and the risk and benefits of the procedure were explained to the patient. The patient had noninvasive monitoring placed including noninvasive blood pressure cuff and pulse oximeter. Patient's pump was interrogated. The area over the pump was cleansed with chlorhexidine as a cleansing solution. In sterile fashion the pump was accessed with a 22-gauge needle. Approximately 6.8 mls of the pump solution was removed and discarded appropriately. The pump was then refilled with 20 mL's of morphine 20 mg per. The needle was withdrawn and a bandage was placed over the puncture site. The infusion rate was reprogrammed and continued at morphine 2.7 mg/day. The patient tolerated well with no complication. Plan and Disposition:: Patient tolerated the procedure well with no complications and was discharged neurologically intact. Patient will return to clinic on or before their next intrathecal refill date. We will see the patient back in the clinic at the next intrathecal refill. Patient has been instructed to contact the clinic with any concerns before the next appointment. Dr. Fernandez has reviewed this note and agrees with this plan of care. This note was dictated using voice recognition software and make contain errors or omissions. -- It Is medically necessary for this patient to continue to have their intrathecal pump refilled at regular intervals. This patient had an intrathecal pain pump implanted after meeting criteria of chronic intractable pain for greater than 3 months and failing conservative treatments. Patient has committed and been compliant to the treatment plan and all planned follow up care. Since implantation of the intrathecal pain pump, the patient has had decreased pain and been more functional. Oral medications have been reduced including intake of oral opioids. Patient continues to do well with intrathecal therapy with decrease in pain symptoms and increase in functional status. Stopping intrathecal medications can lead to life threatening withdrawal, seizures, cardiac arrest, severe pain, and possible . Pumps that are not refilled at regular intervals can be damages and cause and need for replacement. We continually titrate dose and concentration to optimize pain relief and function. We are limited in concentration for certain drugs to safely deliver medications through the pump and stay within the recommendations from the Polyanalgesic Consensus Committee Guidelines. Depending on dose and concentration these pumps may need to be refilled sooner than 3 months as we titrate. A UDS is needed to verify patient's compliance with our office pain contract. This is ordered based off specific treatments related to chronic pain with the potential to abuse certain medications.
[2024-07-09 10:07] VITALS: BP 140/76; PULSE 89; RESP 18; O2SAT 95
[2024-07-09 10:09] VITALS: BP 140/76; PULSE 89; RESP 18; O2SAT 94
[2024-07-09 10:22] VITALS: BP 129/72; PULSE 84; RESP 16; O2SAT 96
== END 2024-07-09 10:22 | disposition home or self-care (01) ==
LOC: SC.PAINP 09:50 → SC.PAIN 09:52
PROVIDERS: Visit Provider Nurse Practitioner Family
DX: M51.16 Intervertebral disc disorders with radiculopathy, lumbar region (principal)
CPT/HCPCS: 62370

== ENCOUNTER 2024-09-24 11:14 | Day surgery (SDC) | payer OTHER, SELFPAY ==
[2024-09-24 11:24] VITALS: BP 151/75; PULSE 95; RESP 16; TEMP 36.8; O2SAT 98; BMI 25.3
--- NOTE | 2024-09-24 11:40 | P.HP_ITS ---
History of Present Illness *Admission Date: 09/24/24 *Reason for visit:: Intrathecal refill; DDD *History of present illness: Degenerative disc disease [facility] Disclaimer: The information contained in this section may have been updated after the patient was seen, as this information can be updated by other users. 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 current occupational exposures/hazards: No caffeine: Yes Have you lived/traveled outside [place] in past 30 days?: No Contact w/someone who lives/traveled outside US past 30 days?: No Exposure to someone with infectious disease in past 14 days?: No Do you have a fever (greater than 100.4 F or 38 C)?: No Have you tested positive for COVID-19: No Exposed to someone with COVID-19 in past 14 days?: No Do you have a sore throat?: No Do you have a cough?: No Do you have any weakness?: No Do you have any diarrhea?: No Are you experiencing any unusual bleeding?: No Do you have any muscle aches/pain?: No Do you have any abdominal pain?: No Are you experiencing loss of taste or smell?: No Other Medical History Have you received the Flu Vaccine for this season: No Have you received the Pneumonia Vaccine: No Review of Systems Review of Systems Review of systems:: pertinent systems reviewed and negative unless documented below Review of systems (narrative): Review of Systems: General: No recent weight changes, no fever, no sleep disturbances Respiratory: No cough, no shortness of air, no recurring pulmonary infections Cardiovascular/peripheral vascular: No chest pain, no palpitations, no edema, no shortness of breath Gastrointestinal: No new onset incontinence, normal bowel movements reported Genitourinary: No new onset incontinence Musculoskeletal: Chronic back pain Psychiatric: [Normal mood/affect] Neurological: [Denies weakness in extremities], [denies balance issues] Constitutional Constitutional: Reports system reviewed and no additional complaints, except as documented Meds Home Medications and Allergies Home Medications ?Medication ?Instructions ?Recorded ?Confirmed ?Type vitamin E (dl, acetate) 450 mg 1,000 unit PO DAILY Supplement 11/19/17 09/24/24 History (1,000 unit) capsule umeclidinium 62.5 mcg-vilanterol 1 inh IH DAILY Supplement 12/29/18 09/24/24 History 25 mcg/actuation powdr for inhalation hydroxyzine HCl 10 mg tablet 10 mg PO TID PRN anxiety pump w/d 07/09/21 09/24/24 Rx #90 tabs morphine 10 mg/mL intravenous 2.7 mg IT CONT chronic pain 07/12/21 09/24/24 History syringe omeprazole 20 mg capsule,delayed 20 mg PO DAILY . 12/31/22 09/24/24 History release naproxen 500 mg tablet 500 mg PO BID . #60 tabs 04/23/23 09/24/24 Rx ondansetron 4 mg disintegrating 4 mg PO Q8H PRN nausea and 04/23/23 09/24/24 Rx tablet vomiting #14 tabs celecoxib 100 mg capsule (Celebrex) 100 mg PO BID #180 caps 08/06/24 09/24/24 Rx gabapentin 800 mg tablet 800 mg PO TID . #270 tabs 08/06/24 09/24/24 Rx (Neurontin) New Prescriptions to Start Prescriptions: Allergies Allergy/AdvReac Type Severity Reaction Status Date / Time adhesive (ADHESIVE) Allergy Mild Rash Verified 07/09/24 09:56 metaxalone (From SKELAXIN) Allergy Mild Unknown Verified 07/09/24 09:56 allergy reaction Exam Data for Last 24 hours Vital signs and Labs for Last 24 Hours: Temp Pulse Resp BP Pulse Ox O2 Del Method 98.3 F 95 H 16 151/75 H 98 Room Air 09/24/24 11:24 09/24/24 11:24 09/24/24 11:24 09/24/24 11:24 09/24/24 11:24 09/24/24 11:24 I & O for Last 24 hours: Intake & Output 09/21/24 09/22/24 09/23/24 09/24/24 23:59 23:59 23:59 23:59 Weight 157 lb Constitutional Constitutional: no acute distress *Routine HEENT Exam Head: Present normocephalic and atraumatic Eye: Present PERRL ENT: Present mucous membranes moist *Routine Neck Exam Neck: Present supple *Routine Respiratory Exam Respiratory: Present CTA bilaterally *Routine Cardiovascular Exam Cardiovascular: Present RRR *Routine Abdominal Exam Abdominal: Present soft *Routine Rectal Exam Rectal:: deferred *Routine Genitalia Exam Genitalia:: normal female Routine Back/Spine/Pelvis Exam Back/Spine: Present pain with flexion *Routine Skin Exam Skin: Present intact *Routine Neurological Exam Neurological: Present alert and oriented X3 Routine Psychiatric Exam Psychiatric: Present normal affect Assessment and Plan *Assessment and plan (1) Chronic back pain: Status: Acute Category: Medical Code(s): M54.9 - Dorsalgia, unspecified; G89.29 - Other chronic pain Plan Patient has been instructed to contact the clinic with any concerns before the next appointment. Dr. Fernandez has reviewed this note and agrees with this plan of care. This note was dictated using voice recognition software and make contain errors or omissions. All injections are used with Lidocaine, Bupivacaine and dexamethasone. Occasionally urine drug screen is needed to verify patient's compliance with our office pain contract. This is ordered based off specific treatments related to chronic pain with the potential to abuse certain medications.
--- NOTE | 2024-09-24 11:42 | P.PCN_ITS ---
Procedure Date: 09/24/24 Time: 11:58 Anesthesiologist:: Julieth Ryan APRN Complications:: None Pre-procedure Diagnosis:: Degenerative disc disease of lumbar spine, chronic back pain Post-procedure Diagnosis:: Same Indications for Procedure:: Patient is a pleasant 64-year-old female who presents today for intrathecal refill and reprogram. Today she rates her pain a 7 out of 10. She denies any new trauma or injury. She does state that overall she is doing well but could use some adjustment on her pump. 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 Patient is currently managed with Celebrex 100 mg twice a day, gabapentin 800 mg 3 times daily from our office along with her intrathecal morphine 20 mg/mL with a daily dose of 2.7 mg/day. She denies any side effects. Her Michael has been reviewed and is appropriate. Physical Exam: General: Alert and oriented x3, no acute distress, pleasant and cooperative Lungs: Respirations even and unlabored, symmetrical chest expansion Eyes: PERRL Musculoskeletal: Flexion and extension of lumbar [spine] somewhat guarded secondary to pain, [antalgic gait noted] Neurological: Speech clear, no gross sensory deficit Procedure Details:: Informed consent was obtained and the risk and benefits of the procedure were explained to the patient. The patient had noninvasive monitoring placed including noninvasive blood pressure cuff and pulse oximeter. Patient's pump was interrogated. The area over the pump was cleansed with chlorhexidine as a cleansing solution. In sterile fashion the pump was accessed with a 22-gauge needle. Approximately 7 mls of the pump solution was removed and discarded appropriately. The pump was then refilled with 20 mL's of morphine 20 mg/mL. The needle was withdrawn and a bandage was placed over the puncture site. The infusion rate was reprogrammed and increased 5% to morphine 2.835 mg/day. The patient tolerated well with no complication. Plan and Disposition:: Patient tolerated the procedure well with no complications and was discharged neurologically intact. I will make sure that she does have refills on her gabapentin and Celebrex. Patient will return to clinic on or before their next intrathecal refill date. We will see the patient back in the clinic at the next intrathecal refill. Patient has been instructed to contact the clinic with any concerns before the next appointment. Dr. Fernandez has reviewed this note and agrees with this plan of care. This note was dictated using voice recognition software and make contain errors or omissions. -- It Is medically necessary for this patient to continue to have their intrathecal pump refilled at regular intervals. This patient had an intrathecal pain pump implanted after meeting criteria of chronic intractable pain for greater than 3 months and failing conservative treatments. Patient has committed and been compliant to the treatment plan and all planned follow up care. Since implantation of the intrathecal pain pump, the patient has had decreased pain and been more functional. Oral medications have been reduced including intake of oral opioids. Patient continues to do well with intrathecal therapy with d ecrease in pain symptoms and increase in functional status. Stopping intrathecal medications can lead to life threatening withdrawal, seizures, cardiac arrest, severe pain, and possible . Pumps that are not refilled at regular intervals can be damages and cause and need for replacement. We continually titrate dose and concentration to optimize pain relief and function. We are limited in concentration for certain drugs to safely deliver medications through the pump and stay within the recommendations from the Polyanalgesic Consensus Committee Guidelines. Depending on dose and concentration these pumps may need to be refilled sooner than 3 months as we titrate. A UDS is needed to verify patient's compliance with our office pain contract. This is ordered based off specific treatments related to chronic pain with the potential to abuse certain medications.
[2024-09-24 11:54] VITALS: BP 138/82; PULSE 87; RESP 18; O2SAT 92
[2024-09-24 11:55] VITALS: BP 138/82; PULSE 87; RESP 18; O2SAT 92
[2024-09-24 12:04] VITALS: BP 124/72; PULSE 90; RESP 16; O2SAT 93
== END 2024-09-24 12:04 | disposition home or self-care (01) ==
PROVIDERS: Visit Provider Nurse Practitioner Family
DX: M51.369 Other intervertebral disc degeneration, lumbar region without mention of lumbar back pain or lower extremity pain (principal); M54.50 Low back pain, unspecified; G89.29 Other chronic pain
CPT/HCPCS: 62370; 99221

== ENCOUNTER 2024-12-10 10:24 | Day surgery (SDC) | payer OTHER, SELFPAY ==
--- NOTE | 2024-12-10 10:38 | EXP.PM.HP ---
History of Present Illness *Admission Date: 12/10/24 *Reason for visit:: Intrathecal refill; DDD *History of present illness: Same [facility] Disclaimer: The information contained in this section may have been updated after the patient was seen, as this information can be updated by other users. 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 current occupational exposures/hazards: No caffeine: Yes Have you lived/traveled outside [place] in past 30 days?: No Contact w/someone who lives/traveled outside [place] past 30 days?: No Exposure to someone with infectious disease in past 14 days?: No Do you have a fever (greater than 100.4 F or 38 C)?: No Have you tested positive for COVID-19?: No Exposed to someone with COVID-19 in past 14 days?: No Do you have a sore throat?: No Do you have a cough?: No Do you have any weakness?: No Do you have any diarrhea?: No Are you experiencing any unusual bleeding?: No Do you have any muscle aches/pain?: No Do you have any abdominal pain?: No Are you experiencing loss of taste or smell?: No Other Medical History Have you received the Flu Vaccine for this season: No Have you received the Pneumonia Vaccine: No Review of Systems Review of Systems Review of systems:: pertinent systems reviewed and negative unless documented below Review of systems (narrative): Review of Systems: General: No recent weight changes, no fever, no sleep disturbances Respiratory: No cough, no shortness of air, no recurring pulmonary infections Cardiovascular/peripheral vascular: No chest pain, no palpitations, no edema, no shortness of breath Gastrointestinal: No new onset incontinence, normal bowel movements reported Genitourinary: No new onset incontinence Musculoskeletal: Chronic back pain Psychiatric: [Normal mood/affect] Neurological: [Denies weakness in extremities], [denies balance issues] Meds Home Medications and Allergies Home Medications ?Medication ?Instructions ?Recorded ?Confirmed ?Type vitamin E (dl, acetate) 450 mg 1,000 unit PO DAILY Supplement 11/19/17 09/24/24 History (1,000 unit) capsule umeclidinium 62.5 mcg-vilanterol 1 inh IH DAILY Supplement 12/29/18 09/24/24 History 25 mcg/actuation powdr for inhalation hydroxyzine HCl 10 mg tablet 10 mg PO TID PRN anxiety pump w/d 07/09/21 09/24/24 Rx #90 tabs morphine 10 mg/mL intravenous 2.7 mg IT CONT chronic pain 07/12/21 09/24/24 History syringe omeprazole 20 mg capsule,delayed 20 mg PO DAILY . 12/31/22 09/24/24 History release naproxen 500 mg tablet 500 mg PO BID . #60 tabs 04/23/23 09/24/24 Rx ondansetron 4 mg disintegrating 4 mg PO Q8H PRN nausea and 04/23/23 09/24/24 Rx tablet vomiting #14 tabs celecoxib 100 mg capsule (Celebrex) 100 mg PO BID #180 caps 08/06/24 09/24/24 Rx gabapentin 800 mg tablet 800 mg PO TID . #270 tabs 08/06/24 09/24/24 Rx (Neurontin) New Prescriptions to Start Prescriptions: Allergies Allergy/AdvReac Type Severity Reaction Status Date / Time adhesive (ADHESIVE) Allergy Mild Rash Verified 07/09/24 09:56 metaxalone (From SKELAXIN) Allergy Mild Unknown Verified 07/09/24 09:56 allergy reaction Exam Constitutional Constitutional: no acute distress *Routine HEENT Exam Head: Present normocephalic and atraumatic Eye: Present PERRL ENT: Present mucous membranes moist *Routine Neck Exam Neck: Present supple *Routine Respiratory Exam Respiratory: Present CTA bilaterally *Routine Cardiovascular Exam Cardiovascular: Present RRR *Routine Abdominal Exam Abdominal: Present soft *Routine Rectal Exam Rectal:: deferred *Routine Genitalia Exam Genitalia:: deferred Routine Back/Spine/Pelvis Exam Back/Spine: Present pain with flexion *Routine Skin Exam Skin: Present intact *Routine Neurological Exam Neurological: Present alert and oriented X3 Assessment and Plan *Assessment and plan (1) Chronic back pain: Status: Acute Category: Medical Code(s): M54.9 - Dorsalgia, unspecified; G89.29 - Other chronic pain (2) Fibromyalgia: Status: Acute Category: Medical Code(s): M79.7 - Fibromyalgia Plan Patient has been instructed to contact the clinic with any concerns before the next appointment. Dr. Fernandez has reviewed this note and agrees with this plan of care. This note was dictated using voice recognition software and make contain errors or omissions. All injections are used with Lidocaine, Bupivacaine and dexamethasone. Occasionally urine drug screen is needed to verify patient's compliance with our office pain contract. This is ordered based off specific treatments related to chronic pain with the potential to abuse certain medications.
--- NOTE | 2024-12-10 10:40 | EXP.PAIN.PRO ---
Procedure Date: 12/10/24 Time: 11:09 Anesthesiologist:: Julieth Ryan APRN Complications:: None Pre-procedure Diagnosis:: Chronic back pain, fibromyalgia Post-procedure Diagnosis:: Same Indications for Procedure:: Patient is a pleasant 64-year-old female who presents today for intrathecal refill and reprogram. Patient is currently managed with morphine 20 mg/mL with a daily dose of 2.835 mg/day. Patient rates her pain today a 9 out of 10. She denies any new falls or injuries. She just states that she really does not think this is working as it should.Patient is also prescribed Celebrex 100 mg twice daily and gabapentin 800 mg 3 times daily from our office. She denies any side effects. Her Michael has been reviewed and is appropriate. Physical Exam: General: Alert and oriented x3, no acute distress, pleasant and cooperative Lungs: Respirations even and unlabored, symmetrical chest expansion Eyes: PERRL Musculoskeletal: Flexion and extension of lumbar [spine] somewhat guarded secondary to pain, [antalgic gait noted] Neurological: Speech clear, no gross sensory deficit Procedure Details:: Informed consent was obtained and the risk and benefits of the procedure were explained to the patient. The patient had noninvasive monitoring placed including noninvasive blood pressure cuff and pulse oximeter. Patient's pump was interrogated. The area over the pump was cleansed with chlorhexidine as a cleansing solution. In sterile fashion the pump was accessed with a 22-gauge needle. Approximately 6.3 mls of the pump solution was removed and discarded appropriately. The pump was then refilled with 20 mL's of morphine 20 mg/mL. The needle was withdrawn and a bandage was placed over the puncture site. The infusion rate was reprogrammed and continued at its current dosage. The patient tolerated well with no complication. Plan and Disposition:: Patient tolerated the procedure well with no complications and was discharged neurologically intact.Patient was given a 6-month supply of her gabapentin and Celebrex at the last visit and does not need refills at this time.she does have 1 refill left on this that is a 90-day supply. Patient states that she did already call and she cannot pick it up till the 16th. Patient is still feeling like her pump is not working as efficiently as it has in the past. Patient was previously submitted for the pump replacement due to end-of-life however at that time we had difficulty with the insurance. She does state today that she would like to proceed forward with this replacement surgery as she feels like her pain has continued to hand picker more and more. Patient was reviewed over the risk and benefits of this surgery and we will submit to insurance for this procedure. Patient will have to be submitted for replacement of intrathecal pump with catheter replacement as well as it is not compatible with the [employer] system. Patient knowledges understanding agrees with this plan of care. Patient has been compliance with our pain management policies and has done extremely well with the intrathecal pump system in the past with significant improvement in her overall function. Patient has continued conservative treatment including oral medication, heat and ice, topicals, at home stretching exercise for longer than 12 weeks. We will see the patient back in the clinic at the next intrathecal refill. Patient has been instructed to contact the clinic with any concerns before the next appointment. Dr. Fernandez has reviewed this note and agrees with this plan of care. This note was dictated using voice recognition software and make contain errors or omissions. -- It Is medically necessary for this patient to continue to have their intrathecal pump refilled at regular intervals. This patient had an intrathecal pain pump implanted after meeting criteria of chronic intractable pain for greater than 3 months and failing conservative treatments. Patient has committed and been compliant to the treatment plan and all planned follow up care. Since implantation of the intrathecal pain pump, the patient has had decreased pain and been more functional. Oral medications have been reduced including intake of oral opioids. Patient continues to do well with intrathecal therapy with decrease in pain symptoms and increase in functional status. Stopping intrathecal medications can lead to life threatening withdrawal, seizures, cardiac arrest, severe pain, and possible . Pumps that are not refilled at regular intervals can be damages and cause and need for replacement. We continually titrate dose and concentration to optimize pain relief and function. We are limited in concentration for certain drugs to safely deliver medications through the pump and stay within the recommendations from the Polyanalgesic Consensus Committee Guidelines. Depending on dose and concentration these pumps may need to be refilled sooner than 3 months as we titrate. A UDS is needed to verify patient's compliance with our office pain contract. This is ordered based off specific treatments related to chronic pain with the potential to abuse certain medications.
[2024-12-10 10:41] VITALS: BP 139/82; PULSE 85; RESP 18; O2SAT 96; BMI 25.4
[2024-12-10 11:00] VITALS: BP 137/75; PULSE 80; RESP 18; O2SAT 93
[2024-12-10 11:10] VITALS: BP 136/72; PULSE 62; RESP 18; O2SAT 100
== END 2024-12-10 11:10 | disposition home or self-care (01) ==
PROVIDERS: Visit Provider Nurse Practitioner Family
DX: Z45.1 Encounter for adjustment and management of infusion pump (principal); G89.29 Other chronic pain; M79.7 Fibromyalgia; M06.9 Rheumatoid arthritis, unspecified; Z88.8 Allergy status to other drugs, medicaments and biological substances; Z91.048 Other nonmedicinal substance allergy status; Z79.891 Long term (current) use of opiate analgesic; Z79.899 Other long term (current) drug therapy
CPT/HCPCS: 95991

== ENCOUNTER 2025-05-06 12:56 | Outpatient (CLI) | payer OTHER, SELFPAY ==
[2025-05-06 09:55] VITALS: BMI 27.4
--- NOTE | 2025-05-06 13:34 | ECG_ITS ---
APPROVED REPORT Exam: Resting ECG HR:91 bpm ECG Measurements Heart Rate 91 AXES ME 162 P 42 QRSd 89 QRS -6 QT 369 T 15 QTc 418 Conclusion SINUS RHYTHM POSSIBLE LEFT ATRIAL ENLARGEMENT [-0.1mV P-WAVE IN V1/V2] LOW QRS VOLTAGE IN PRECORDIAL LEADS [QRS DEFLECTION < 1.0 mV IN CHEST LEADS] BORDERLINE ECG UNCONFIRMED REPORT Electronically signed by : Dk Berry MD 05/07/2025 08:40:28
[2025-05-06 13:52] LABS: Hematocrit 36.4 % (37.0-47.0); Hemoglobin 12.4 g/dL (12.2-16.2); Immature Granulocytes % 0.2 %; Mean Corpuscular HGB Conc 34.1 g/dL (31.8-35.4); Mean Corpuscular Hemoglobin 29.1 pg (27.0-31.2); Mean Corpuscular Volume 85.4 fl (81-99); Nucleated Red Blood Cells % 0 %; Platelet Count 215 K/mm3 (142-424); Red Blood Count 4.26 M/mm3 (4.20-5.40); Red Cell Distribution Width-SD 39.9 fL; White Blood Count 4.4 K/mm3 (4.8-10.8)
[2025-05-06 14:11] LABS: Anion Gap 12.4 mEq/L (5-15); Blood Urea Nitrogen 10 mg/dl (7-17); Calcium 9.0 mg/dl (8.4-10.2); Carbon Dioxide 30 mmol/L (22.0-30.0); Chloride 93 mmol/L (98-107); Creatinine Clearance Estimated 70 mL/min (50-200); Creatinine,Serum 0.60 mg/dl (0.52-1.04); Estimated Glomerular Filt Rate 101 ml/min (>60); GFR (African American) 122 ML/MIN (>60); Glucose 303 mg/dl (74-100); Potassium 3.4 mmoL/L (3.5-5.1); Sodium 132 mmol/L (136-145)
== END 2025-05-06 23:59 | disposition home or self-care (01) ==
LOC: PREOP 12:57
PROVIDERS: Visit Provider Anesthesiology
DX: Z01.810 Encounter for preprocedural cardiovascular examination (principal); Z01.812 Encounter for preprocedural laboratory examination; R94.31 Abnormal electrocardiogram [ECG] [EKG]
CPT/HCPCS: 80048; 85025; 93005

== ENCOUNTER 2025-05-24 09:10 | Outpatient (CLI) | payer SELFPAY ==
[2025-05-24 14:53] LABS: Anion Gap 10.1 mEq/L (5-15); Blood Urea Nitrogen 8 mg/dl (7-17); Calcium 8.7 mg/dl (8.4-10.2); Carbon Dioxide 32 mmol/L (22.0-30.0); Chloride 99 mmol/L (98-107); Creatinine,Serum 0.60 mg/dl (0.52-1.04); Estimated Glomerular Filt Rate 101 ml/min (>60); GFR (African American) 122 ML/MIN (>60); Glucose 130 mg/dl (74-100); Potassium 4.1 mmoL/L (3.5-5.1); Sodium 137 mmol/L (136-145)
== END 2025-05-24 23:59 | disposition home or self-care (01) ==
LOC: LAB.DROPOF 05-27 09:11
PROVIDERS: PCP Student in an Organized Health Care Education/Training Program; Visit Provider Student in an Organized Health Care Education/Training Program
DX: I10 Essential (primary) hypertension (principal)
CPT/HCPCS: 80048